=== PATIENT | male | born 1950 | race Caucasian/White ===

== ENCOUNTER → 2016-11-17 | Outpatient (CLI) | payer OTHER ==
[~2016-11-17] MED LIST: ATEN25TA; BABY81CH; LEVA500T; LISIPOW; MELOPOW
--- NOTE | 2016-11-17 08:51 | REP ---
Chest x-ray: Two views. History: Asthma. Comparison chest x-ray is from May 08, 2012. Findings: The lungs are well inflated and clear on today's radiographs. Pleural angles are sharp. Heart size is normal. There are minimal degenerative changes in the thoracic spine. Pulmonary vasculature is not increased. Impression: No active disease. Signed by Panfilo Rizvi MD 11/17/2016 03:36 P
== END ==
LOC: M LAB 08:09 → M RAD 08:09
PROVIDERS: ATTEND Orthopaedic Surgery
DX: Z01.818 Encounter for other preprocedural examination (principal); J45.909 Unspecified asthma, uncomplicated

== ENCOUNTER → 2016-11-20 | Outpatient (CLI) | payer OTHER ==
[2016-11-20 15:12] LABS: MEAN CORPUSCULAR HEMOGLOBIN 31.7 pg (27.0-33.0); MEAN CORPUSCULAR VOLUME 93.2 fl (80.0-96.0); WHITE BLOOD COUNT 8.2 K/mm3 (4.0-10.0)
[2016-11-20 15:44] LABS: ALBUMIN 4.2 GM/DL (3.2-5.2); ALBUMIN/GLOBULIN RATIO 1.24 (1.00-1.93); ALKALINE PHOSPHATASE 107 U/L (45-117); ALT/SGPT 36 U/L (12-78); ANION GAP 7 MEQ/L (8-16); AST/SGOT 22 U/L (15-37); BILIRUBIN,TOTAL 0.5 MG/DL (0.2-1.0); BLOOD UREA NITROGEN 13 MG/DL (7-18); CALCIUM LEVEL 8.8 MG/DL (8.8-10.2); CARBON DIOXIDE LEVEL 30 MEQ/L (21-32); CHLORIDE LEVEL 103 MEQ/L (98-107); GLOMERULAR FILTRATION RATE > 60.0 (>49); GLUCOSE, FASTING 101 MG/DL (80-110); SODIUM LEVEL 140 MEQ/L (136-145); TOTAL PROTEIN 7.6 GM/DL (6.4-8.2)
--- NOTE | 2016-11-20 17:20 | ECGEPIP ---
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
== END ==
LOC: M LAB 14:34
PROVIDERS: ATTEND Physician Assistant
DX: Z01.818 Encounter for other preprocedural examination (principal)

== ENCOUNTER → 2016-12-10 | Outpatient (REF) | payer OTHER ==
[2016-12-10 13:47] LABS: BASO # 0.1 K/mm3 (0.0-0.2); BASO % 0.9 % (0.0-1.0); EOS # 0.2 K/mm3 (0.0-0.50); EOS % 2.8 % (0.0-3.0); LARGE UNSTAINED CELL # 0.2 K/mm3 (0.0-0.4); LARGE UNSTAINED CELL % 2.5 % (0.0-4.0); LYMPH # 2.2 K/mm3 (1.5-4.5); LYMPH % 27.4 % (24.0-44.0); MEAN CORPUSCULAR HEMOGLOBIN 32.8 pg (27.0-33.0); MEAN CORPUSCULAR HGB CONC 34.2 g/dl (32.0-36.5); MEAN CORPUSCULAR VOLUME 96.1 fl (80.0-96.0); MONO # 0.4 K/mm3 (0.0-0.8); MONO % 4.9 % (0.0-5.0); NEUTROPHILS % 61.4 % (36.0-66.0); PLATELET COUNT, AUTOMATED 250 k/mm3 (150-450); RED CELL DISTRIBUTION WIDTH 12.2 % (11.5-14.5); WHITE BLOOD COUNT 8.2 K/mm3 (4.0-10.0)
[2016-12-10 14:36] LABS: ERYTHROCYTE SEDIMENTATION RATE 14 mm/hr (0-20)
== END ==
LOC: M LABDRAW1 11:27
PROVIDERS: ATTEND Orthopaedic Surgery
DX: Z47.89 Encounter for other orthopedic aftercare (principal)

== ENCOUNTER → 2017-01-23 | Outpatient (CLI) | payer OTHER ==
[2017-01-23 11:56] LABS: BASO % 0.5 % (0.0-1.0); EOS # 0.2 K/mm3 (0.0-0.50); EOS % 2.5 % (0.0-3.0); LARGE UNSTAINED CELL # 0.1 K/mm3 (0.0-0.4); LARGE UNSTAINED CELL % 1.6 % (0.0-4.0); LYMPH # 2.1 K/mm3 (1.5-4.5); LYMPH % 29.8 % (24.0-44.0); MEAN CORPUSCULAR HEMOGLOBIN 33.4 pg (27.0-33.0); MEAN CORPUSCULAR HGB CONC 35.1 g/dl (32.0-36.5); MEAN CORPUSCULAR VOLUME 95.2 fl (80.0-96.0); MONO # 0.4 K/mm3 (0.0-0.8); MONO % 6.4 % (0.0-5.0); NEUTROPHILS # 3.9 K/mm3 (1.8-7.7); NEUTROPHILS % 59.2 % (36.0-66.0); PLATELET COUNT, AUTOMATED 218 k/mm3 (150-450); RED CELL DISTRIBUTION WIDTH 12.9 % (11.5-14.5); WHITE BLOOD COUNT 6.6 K/mm3 (4.0-10.0)
[2017-01-23 12:13] LABS: ALBUMIN 4.1 GM/DL (3.2-5.2); ALBUMIN/GLOBULIN RATIO 1.28 (1.00-1.93); ALKALINE PHOSPHATASE 103 U/L (45-117); ALT/SGPT 28 U/L (12-78); ANION GAP 8 MEQ/L (8-16); AST/SGOT 16 U/L (15-37); BILIRUBIN,TOTAL 0.9 MG/DL (0.2-1.0); BLOOD UREA NITROGEN 18 MG/DL (7-18); CARBON DIOXIDE LEVEL 26 MEQ/L (21-32); CHLORIDE LEVEL 108 MEQ/L (98-107); CREATININE FOR GFR 0.91 MG/DL (0.70-1.30); FERRITIN 391 NG/ML (26-388); FREE T4 0.82 NG/DL (0.76-1.46); GLOMERULAR FILTRATION RATE > 60.0 (>49); GLUCOSE, FASTING 135 MG/DL (80-110); PERCENT SATURATION 40.4 % (19.7-37.4); POTASSIUM SERUM 4.2 MEQ/L (3.5-5.1); SODIUM LEVEL 142 MEQ/L (136-145); TOTAL IRON BINDING CAPACITY 354 UG/DL (250-450); TOTAL PROTEIN 7.3 GM/DL (6.4-8.2)
== END ==
LOC: M WUC 09:57
PROVIDERS: ATTEND Family Medicine
DX: E03.9 Hypothyroidism, unspecified (principal); E55.9 Vitamin D deficiency, unspecified; E83.110 Hereditary hemochromatosis; Z12.5 Encounter for screening for malignant neoplasm of prostate
CPT/HCPCS: 36415; 80053; 82306; 82728; 83550; 83970; 84439; 84443; 85025; G0103

== ENCOUNTER → 2018-04-22 | Outpatient (REF) | payer OTHER ==
[2018-04-22 12:42] LABS: RETIC HEMOGLOBIN EQUIVALENT 36.6 pg (24-36); RETICULOCYTE # 49.7 10^9/L (17-77); RETICULOCYTE % 1.1 % (0.5-1.5)
[2018-04-22 12:49] LABS: INR 0.96; PROTHROMBIN TIME 12.9 SECONDS (12.1-14.4)
[2018-04-22 12:50] LABS: PARTIAL THROMBOPLASTIN TIME 33.1 SECONDS (25.4-37.6)
[2018-04-22 13:01] LABS: HEMATOCRIT 43.1 % (42.0-52.0)
[2018-04-22 13:43] LABS: ALBUMIN 3.9 GM/DL (3.2-5.2); ALBUMIN/GLOBULIN RATIO 1.22 (1.00-1.93); ALKALINE PHOSPHATASE 98 U/L (45-117); ALT/SGPT 21 U/L (12-78); ANION GAP 9 MEQ/L (8-16); AST/SGOT 10 U/L (7-37); BILIRUBIN,TOTAL 0.5 MG/DL (0.2-1.0); BLOOD UREA NITROGEN 13 MG/DL (7-18); C REACTIVE PROTEIN QUANTITATIV < 0.30 MG/DL (0.00-0.30); CALCIUM LEVEL 8.9 MG/DL (8.8-10.2); CARBON DIOXIDE LEVEL 27 MEQ/L (21-32); CHLORIDE LEVEL 106 MEQ/L (98-107); CREATININE FOR GFR 0.74 MG/DL (0.70-1.30); FREE T4 0.87 NG/DL (0.76-1.46); GLOMERULAR FILTRATION RATE > 60.0 (>42); GLUCOSE, FASTING 75 MG/DL (70-100); MAGNESIUM LEVEL 2.2 MG/DL (1.8-2.4); POTASSIUM SERUM 4.5 MEQ/L (3.5-5.1); PSA SCREENING 2.64 NG/ML (< 4.0); SODIUM LEVEL 142 MEQ/L (136-145); TOTAL PROTEIN 7.1 GM/DL (6.4-8.2)
[2018-04-22 15:23] LABS: PRETREATED FOLATE FOR RBCFOL 17.6 NG/ML; RBC FOLATE 857.5 NG/ML (280-791)
== END ==
LOC: M SFHCPLAZ 09:28
DX: Z12.5 Encounter for screening for malignant neoplasm of prostate (principal); E53.8 Deficiency of other specified B group vitamins; E83.110 Hereditary hemochromatosis; E03.9 Hypothyroidism, unspecified; I10 Essential (primary) hypertension; R63.4 Abnormal weight loss

== ENCOUNTER → 2019-03-06 | Outpatient (CLI) | payer OTHER ==
[~2019-03-06] MED LIST changes: +ATEN25TA PO; +D 50CAP2 PO; +DICL1GEL3 TOP; +FLON1SPR NARES; +LEVO50TA5 PO; +LIPI20TA PO; +LISI-538 PO; +MOBI15TA PO; +VITA500T41 PO
[2019-03-06 08:41] LABS: HEMATOCRIT 41.9 % (42.0-52.0); HEMOGLOBIN 13.9 g/dl (13.5-17.5); MEAN CORPUSCULAR HEMOGLOBIN 31.5 pg (27.0-33.0); MEAN CORPUSCULAR HGB CONC 33.2 g/dl (32.0-36.5); PLATELET COUNT, AUTOMATED 222 10^3/uL (150-450); RED BLOOD COUNT 4.41 10^6/uL (4.30-6.10); WHITE BLOOD COUNT 7.2 10^3/uL (4.0-10.0)
[2019-03-06 08:58] LABS: INR 1.03; PROTHROMBIN TIME 13.2 SECONDS (11.8-14.0)
[2019-03-06 09:06] LABS: ALBUMIN 3.8 GM/DL (3.2-5.2); ALT/SGPT 20 U/L (12-78); BILIRUBIN,TOTAL 0.7 MG/DL (0.2-1.0); BLOOD UREA NITROGEN 17 MG/DL (7-18); CALCIUM LEVEL 8.7 MG/DL (8.8-10.2); CARBON DIOXIDE LEVEL 26 MEQ/L (21-32); CHLORIDE LEVEL 109 MEQ/L (98-107); CREATININE FOR GFR 0.97 MG/DL (0.70-1.30); GLOMERULAR FILTRATION RATE > 60.0 (>42); GLUCOSE, FASTING 131 MG/DL (70-100); POTASSIUM SERUM 4.2 MEQ/L (3.5-5.1); SODIUM LEVEL 142 MEQ/L (136-145); TOTAL PROTEIN 7.3 GM/DL (6.4-8.2)
[2019-03-06 09:13] LABS: ERYTHROCYTE SEDIMENTATION RATE 10 mm/hr (0-20)
--- NOTE | 2019-03-06 21:03 | ECGEPIP ---
[facility] Test Date: 2019-03-06 Pat Name: RACHAEL VILLA Department: Room: - Gender: Male Recruiter: Jenny : 1950 Requested By: Leonel Henry Order Number: [id number] Reading MD: Dl Contreras Measurements Intervals [place] Rate: 64 P: 57 FL: 170 QRS: 10 QRSD: 91 T: 44 QT: 377 QTc: 391 Interpretive Statements Normal sinus rhythm Minor repolarization abnormalities No significant change when compared to prior tracing of 11/20/2016 Electronically Signed on 03-06-2019 21:02:46 EDT by Dl Contreras
--- NOTE | 2019-03-07 05:41 | REP ---
Clinical: Preoperative assessment . Comparison: 11/17/2016 . Technique: PA and lateral. Findings: The mediastinum and cardiac silhouette are normal. The lung moralez are clear and without acute consolidation, effusion, or pneumothorax. The skeletal structures are intact and normal. Impression: 1. No acute cardiopulmonary process. Electronically Signed by Pratik Dejesus MD 03/07/2019 05:32 A
== END ==
LOC: M RAD 08:12
PROVIDERS: ATTEND Orthopaedic Surgery
DX: M17.12 Unilateral primary osteoarthritis, left knee (principal)

== ENCOUNTER 2019-03-27 09:25 | Inpatient (IN) | payer OTHER ==
--- NOTE | 2019-03-15 09:20 | HPE ---
DATE OF ADMISSION: 03/27/2019 HISTORY OF PRESENT ILLNESS: This is a pleasant 69-year-old male with continuing symptomatic left knee osteoarthritis related to a work injury sustained on 06/22/2016. Mr. Quinones has consented for a left total knee arthroplasty per Dr. Leonel Malone. X-rays are consistent with advanced osteoarthritis. Medical optimization performed by [place] on 03/13/2019, which I am awaiting her documentation. ALLERGIES: None known to drugs. MEDICATIONS: List includes atenolol, Lipitor, lisinopril, levothyroxine sodium, Mobic, Tylenol 325 mg, Diclofenac 1%. MEDICAL PROBLEM LIST: Bilateral knee osteoarthritis. Hypercholesteremia. Hypertension. Hypothyroidism. PAST SURGICAL HISTORY: Tooth extraction. SOCIAL HISTORY: Never smoked. Denies ethanol intake. FAMILY HISTORY: Hypertension, hypercholesteremia, heart disease, diabetes, and cancer. REVIEW OF SYSTEMS: Denies chest pain, shortness of breath, dyspnea on exertion, fever, chills, malaise, upper respiratory or urinary tract symptoms. EKG: Normal sinus rhythm, minor repolarization abnormalities as reviewed through [facility]. CHEST X-RAY: Service date 03/06/2019, no acute cardiopulmonary process. LABORATORY FINDINGS: Glucose (fasting) 131, chloride level 109, anion gap 7, calcium level 8.7, hematocrit 41.9. PHYSICAL EXAMINATION: Vitals: Height 68.25, weight 184.6, temperature 97.1, blood pressure (BP) 130/66, pulse 67, respirations 12. This a pleasant, well-developed, well-nourished male in no acute distress. He is alert and oriented times three. Mood and affect are appropriate. Normocephalic. Neck: Supple. Negative jugular venous distention (JVD) or bruits. Chest rises symmetrically. Lungs clear. Heart: Regular rate and rhythm. Abdomen soft, nontender times four. Bilateral Lower Extremities: Benign, noninfectious looking, skin is intact. Left knee varus osteoarthritic alignment, positive tenderness to medial joint line palpation, range of motion is 0 past 90. IMPRESSION: 1. Left knee symptomatic severe osteoarthritis. 2. The patient consented for a left total knee arthroplasty per Dr. Leonel Malone. 3. Medical optimization per [place], which we are awaiting documentation. 4. 2 grams IV Kefzol bridge construction inspector to operating room (OR). 4. Sequential compression device (SCD) and thromboembolic deterrent stockings (TEDS) in OR. MTDD
[~2019-03-27] VITALS: Ht 177.8 cm; Wt 83.4 kg
[~2019-03-27 09:25] MED LIST changes: +CelecoXIB 400 MG CAP PO ONE; +LIDOCAINE 1% MDV 20ML VIAL SQ PRN; +LR 1,000 ML IV ONE; +PERCOCET 5MG/325MG TAB PO ONE; +PREGABALIN 75 MG CAP(LYRICA) PO ONE
[2019-03-27] MEDS ORDERED: PROPOFOL 200 MG/20 ML VIAL As Ordered ONE (11:36)
[2019-03-27] MEDS ORDERED: LIDOCAINE 2% INJ 100 MG/5 ML SDV (FOR ANES.) As Ordered ONE (11:36)
[2019-03-27] MEDS ORDERED: ONDANSETRON 4MG/2ML VIAL (J2405) As Ordered ONE (11:36)
[2019-03-27] MEDS ORDERED: fentaNYL 100 MCG/2 ML INJECTION (J3010) As Ordered ONE (11:39)
[2019-03-27] MEDS ORDERED: MIDAZOLAM INJ 2 MG/2 ML VIAL (J2250) As Ordered ONE (11:39)
[2019-03-27] MEDS ORDERED: ceFAZolin 1GM INJ (J0690 PER 500MG) As Ordered ONE (12:09)
[2019-03-27] MEDS ORDERED: BUPIVACAINE/EPIN 0.25% 30 ML VIAL As Ordered ONE (12:09)
[2019-03-27] MEDS ORDERED: TRANEXAMIC ACID 100 MG/ML 10ML VIAL As Ordered ONE (12:09)
[2019-03-27] MEDS ORDERED: EPINEPHrine INJ 1 MG/ML 1ML AMP As Ordered ONE (12:10)
[2019-03-27] MEDS ORDERED: BUPIVACAINE LIPOSOME/PF 1.3% 20ML VIAL (13.3MG/ML)(EXPAREL)(C9290 PER1MG) As Ordered ONE (12:10)
[2019-03-27] MEDS ORDERED: BUPIVACAINE HCL 0.5% 30 ML VIAL As Ordered ONE (13:44)
[2019-03-27] MEDS ORDERED: ePHEDrine SULFATE 25 MG/5 ML(5MG/ML) SYRINGE As Ordered ONE (15:11)
[2019-03-27] MEDS ORDERED: PHENYLephrine HCL 500 MCG/5 ML (100MCG/ML) SYRINGE (J2370) As Ordered ONE (15:11)
[2019-03-27] MEDS ORDERED: HYDROMORPHONE HCL 0.5 MG/ 0.5 ML SYRINGE (J1170 PER 1) IV PRN (16:00)
[2019-03-27] MEDS: LR 1,000 ML IV SCH (16:00)
[2019-03-27] MEDS ORDERED: ONDANSETRON 4MG/2ML VIAL (J2405) IV PRN (16:00)
[2019-03-27] MEDS ORDERED: MORPHINE 4 MG/ML 1ML VIAL/SYRINGE (J2270) IV PRN ×2 (16:00)
[2019-03-27] MEDS ORDERED: ACETAMINOPHEN TAB 650MG DOSE (2X325MG) PO PRN (16:15)
[2019-03-27] MEDS ORDERED: FLEET ENEMA PR PRN (16:15)
[2019-03-27 16:39] VITALS: BP 127/76
[2019-03-27 17:12] VITALS: BP 127/80
--- NOTE | 2019-03-27 17:17 | REP ---
LEFT KNEE, TWO VIEWS: AP and lateral views of the left knee are performed. There is placement of a total knee prosthesis. Osseous structures are intact and well aligned. Electronically Signed by Lenin Bales MD 03/28/2019 11:36 P
[2019-03-27 17:58] VITALS: BP 124/71
--- NOTE | 2019-03-27 18:53 | CR.PDOC ---
General Date of Consultation: Mar 27, 2019 Consultation REASON FOR CONSULTATION/CHIEF COMPLAINT: . Management of medical comorbidities HISTORY OF PRESENT ILLNESS: . 69-year-old male with past medication for hypertension, dyslipidemia, hypothyroidism, and osteoporosis was admitted under the orthopedic surgery service for elective left knee arthroplasty. At this time, the patient denies any acute complaints of fevers, chills, chest pain, palpitations, abdominal pain, or any nausea/vomiting/diarrhea. ALLERGIES: Please see below. HOME MEDICATIONS: Please see below. PAST MEDICAL HISTORY: As noted above PAST SURGICAL HISTORY: To the extraction SOCIAL HISTORY: Denies tobacco, alcohol, or illicit drug use REVIEW OF SYSTEMS: 10 point review of systems negative unless otherwise specified in HPI. PHYSICAL EXAMINATION: VITAL SIGNS: Please see below. GENERAL APPEARANCE: . Awake, alert, in no acute distress HEENT: . Normocephalic, atraumatic RESPIRATORY: . Clear to auscultation bilaterally CARDIOVASCULAR: . Normal rate, normal S1, S2 ABDOMEN: . Soft, nontender, nondistended EXTREMITIES: . Left knee noted to be wrapped in surgical dressing. Range of motion limited secondary to recent surgical intervention LABORATORY DATA: Please see below. ASSESSMENT/PLAN: Status post left total knee arthroplasty Pain, DVT prophylaxis, and postoperative management as per orthopedic surgery, PT for functional optimization Hypothyroidism Continue levothyroxine Dyslipidemia Continue statin Hypertension Will hold antihypertensives until the a.m. when blood work is reviewed, and after blood pressure readings have been observed DVT prophylaxis Xarelto as per Ortho Vital Signs/I&O Vital Signs Date Time Temp Pulse Resp B/P (MAP) Pulse Ox O2 Delivery O2 Flow Rate FiO2 03/27/19 16:15 97.3 73 18 129/81 (97) 97 03/27/19 13:15 2 Allergies Coded Allergies: No Known Allergies (Unverified , 03/27/19) Home Medications Scheduled Atenolol (Atenolol) 25 Mg Tablet, 25 MG PO DAILY, (Reported) Atorvastatin Calcium (Lipitor) 20 Mg Tablet, 20 MG PO 2XWK for 30 Days, #30 (Reported) Cholecalciferol (Vitamin D3) (Vitamin D3) 5,000 Unit Capsule, 1 CAP PO DAILY for 30 Days, #30 (Reported) Cyanocobalamin (Vitamin B-12) (Vitamin B-12) 500 Mcg Tablet, 500 MCG PO DAILY for 30 Days, #30 (Reported) Diclofenac Sodium (Diclofenac Sodium) 1% 100GM Gel..gram., 1 APLCT TOP TID for 21 Days, #100 (Reported) APPLY TO LEFT KNEE Levothyroxine Sodium (Levothyroxine Sodium) 50 Mcg Tablet, 50 MCG PO DAILY for 30 Days, #30 (Reported) Lisinopril (Lisinopril) 20 Mg Tablet, 20 MG PO DAILY for 30 Days, #30 (Reported) Scheduled PRN Fluticasone Propionate (Flonase Allergy Relief) 9.9 Ml Stewart.susp, 2 SPRAY NARES DAILY PRN for NASAL CONGESTION for 30 Days, #9.9 (Reported) Meloxicam (Mobic) 15 Mg Tablet, 15 MG PO DAILY PRN for pain for 30 Days, #30 (Reported) ASHKAN MALAGON MD Mar 27, 2019 18:53
[2019-03-27] MEDS ORDERED: FLUTICASONE PROP 0.05% NASAL SPRAY 16 GM (FLONASE) NARES PRN (19:00)
[2019-03-27 19:03] VITALS: BP 122/70
[2019-03-27 21:05] VITALS: BP 122/71
[2019-03-27] MEDS: PERCOCET 5MG/325MG TAB PO PRN (21:19)
[2019-03-28 01:55] VITALS: BP 112/68
[2019-03-28] MEDS: LR 1,000 ML IV SCH (05:20)
[2019-03-28] MEDS: PERCOCET 5MG/325MG TAB PO PRN (05:23)
[2019-03-28 05:25] VITALS: BP 117/60
[2019-03-28] MEDS ORDERED: LEVOTHYROXINE 50MCG TABLET (0.05MG) PO SCH (06:00)
[2019-03-28 06:16] LABS: HEMATOCRIT 37.3 % (42.0-52.0); HEMOGLOBIN 12.7 g/dl (13.5-17.5); MEAN CORPUSCULAR HEMOGLOBIN 32.4 pg (27.0-33.0); MEAN CORPUSCULAR VOLUME 95.2 fl (80.0-96.0); PLATELET COUNT, AUTOMATED 196 10^3/uL (150-450); RED BLOOD COUNT 3.92 10^6/uL (4.30-6.10)
[2019-03-28 06:34] LABS: BLOOD UREA NITROGEN 13 MG/DL (7-18); CALCIUM LEVEL 8.5 MG/DL (8.8-10.2); CARBON DIOXIDE LEVEL 24 MEQ/L (21-32); CHLORIDE LEVEL 105 MEQ/L (98-107); CREATININE FOR GFR 0.91 MG/DL (0.70-1.30); GLOMERULAR FILTRATION RATE > 60.0 (>42); GLUCOSE, FASTING 166 MG/DL (70-100); SODIUM LEVEL 139 MEQ/L (136-145)
[2019-03-28] MEDS ORDERED: PERC5TAB12 PO (06:40)
[2019-03-28] MEDS ORDERED: XARE10TA PO (06:40)
[2019-03-28] MEDS ORDERED: PERCOCET 5MG/325MG TAB PO PRN (07:45)
[2019-03-28] MEDS ORDERED: RIVAROXABAN 10 MG TAB (XARELTO) PO SCH ×2 (08:00→18:00)
--- NOTE | 2019-03-28 08:03 | IPNPDOC ---
Subjective Date Seen The patient was seen on 03/28/19. Subjective Chief Complaint/HPI Patient sitting in chair eating breakfast as I entered the room. He reports to be feeling well. No complaints Constitutional: Denies: Chills, Fever Pulmonary: Denies: Dyspnea, Cough Cardiovascular: Denies: Chest Pain, Palpitations, Orthopnea, Edema Gastrointestinal: Denies: Nausea, Vomiting, Abdominal Pain Psych: Reports: Mood Normal Objective Physical Examination General Exam: Positive: Alert, Cooperative, No Acute Distress Neck Exam: Positive: Supple Chest Exam: Positive: Clear to auscultation, Normal air movement; Negative: Rales, Rhonchi, Wheezing Heart Exam: Positive: Rate Normal Abdomen Exam: Positive: Normal bowel sounds, Soft; Negative: Tenderness Extremity Exam: Positive: Other (Left knee with DIANA bandage, no drainage noted); Negative: Edema Psych Exam: Positive: Mental status NL, Mood NL Assessment /Plan Problems (1) Hypertension Status: Chronic Response to Treatment: Stable Problem Text: 03/28/19: Antihypertensives have been on hold. Pressures have remained stable. We will resume beta-ena today. We will continue to hold ACEI for now. We will continue to monitor B/P (2) Hypothyroidism Status: Chronic Response to Treatment: Stable Problem Text: 03/28/19: Continue with current levothyroxine dose (3) Hyperlipemia Status: Chronic Response to Treatment: Stable Problem Text: 03/28/19: Remains on statin (4) DVT prophylaxis Problem Text: 03/28/19: On Xarelto. Managed by Ortho team Plan/VTE VTE Prophylaxis Ordered?: Yes VS, I&O, 24H, Fishbone Vital Signs/I&O Vital Signs Date Time Temp Pulse Resp B/P (MAP) Pulse Ox O2 Delivery O2 Flow Rate FiO2 03/28/19 05:53 15 03/28/19 05:25 97.4 71 117/60 (79) 97 03/27/19 13:15 2 I&O- Last 24 Hours up to 6 AM 03/28/19 06:00 Intake Total 3740 ml Output Total 1375 ml Balance 2365 ml Laboratory Data 24H LABS Laboratory Tests 2 03/28/19 05:56: Nucleated Red Blood Cells % (auto) 0.0, Anion Gap 10, Glomerular Filtration Rate > 60.0, Blood Urea Nitrogen 13, Creatinine 0.91, Sodium Level 139, Potassium Level 4.0, Chloride Level 105, Carbon Dioxide Level 24, Calcium Level 8.5L CBC/BMP Laboratory Tests 03/28/19 05:56 Red Blood Count 3.92 L, Mean Corpuscular Volume 95.2, Mean Corpuscular Hemoglobin 32.4, Mean Corpuscular Hemoglobin Concent 34.0, Red Cell Distribution Width 11.9, Calcium Level 8.5 L NED [facility] PATHOLOGY LABORATORY TECHNOLOGIST Mar 28, 2019 08:01
[2019-03-28] MEDS: ATORVASTATIN 20 MG TAB PO SCH ×2 (09:00→09:46)
[2019-03-28] MEDS ORDERED: MOM 30ML SUSPENSION UDC PO SCH (09:00)
[2019-03-28] MEDS ORDERED: SENOKOT S TAB PO SCH (09:00)
[2019-03-28] MEDS ORDERED: MIRALAX *UNIT DOSE* 17GM PACKET PO SCH (09:00)
[2019-03-28] MEDS ORDERED: ATENOLOL 25 MG TAB PO SCH (09:00)
[2019-03-28 09:46] VITALS: BP 117/60
--- NOTE | 2019-03-28 23:46 | RO ---
DATE OF PROCEDURE: 03/27/2019 PREOPERATIVE DIAGNOSIS: Left knee osteoarthritis with varus deformity. POSTOPERATIVE DIAGNOSIS: Left knee osteoarthritis with varus deformity. PROCEDURE PERFORMED: Left total knee replacement. SURGEON: Dr. Leonel Malone. THEATER EDUCATION TEACHER: SANTOSH Juares. ANESTHESIA: Block with spinal. ESTIMATED BLOOD LOSS: Less than 100 mL. TOURNIQUET: Tourniquet was utilized. Total tourniquet time was 74 minutes. No complications. COMPONENTS USED: Include DePuy Attune system size 6 femoral component size 7 tibial component cemented, size 6 mm Polyethylene size 30 mm patellar component rotating platform posterior stabilized. INDICATIONS: Progressive discomfort in the left knee. He has elected for operative intervention knee replacement. Consent reviewed in detail including a deepa discussion of the pathology involved, the procedure proposed, alternatives including doing nothing and risks including not limited to pain, failure, infection, bleeding blood loss, incomplete relief of symptoms need for additional surgery and other issues. He agrees to proceed. OPERATIVE COURSE: Identified in the holding area. Site and side verified and brought to the operating room after the block was accomplished. Spinal was accomplished in the operating room and then he was sterilely prepped and draped in usual fashion for exposure of the left knee for replacement. Once I and the mines inspector were comfortable with the patient's positioning he was then sterilely prepped, draped usual fashion. Next the incision was outlined with a marking pen infiltrated with quarter percent Marcaine with epinephrine. The leg elevated and tourniquet was inflated to 275 mmHg. I then made the incision with a 10 blade knife down through skin subcuticular tissues to the extensor mechanism. Patriciarobert utilized retractors to help with exposure. Next fresh knife was utilized to implement a medial parapatellar arthrotomy. Infrapatellar fat pad was removed by myself. Supracondylar soft tissue was cleared from the anterior femur to allow sizing. Medial release was accomplished at the medial aspect of tibia using sharp knife as well as a monterroso elevator. Next, once this was accomplished the patella was everted. The knee was flexed. The lateral patellar plica was released. The canal opening reamer was utilized on the femur. The distal femoral guide was installed 3 degrees valgus, pinned into place. Intramedullary guide removed. I placed retractors. Mr. Bailey then made the distal femoral cut 9 mm. Next, once this was accomplished in the flexed AP sizing guide applied predicting a size 6 femoral component. Pins were placed 3 degrees left. Next, this was removed 4-in-1 guide installed pinned into place. I made the appropriate anterior posterior followed by chamfer cuts while Mr. Bailey positioned retractors to protect the soft tissue. Next, once this guide was removed we inspected the cuts which are appropriate. We removed some osteophyte using Evans-Loving. Next, once this was accomplished tibial alignment guide was installed and based on this was based on the second ray with the appropriate slope 4 mm off the bad side which is the medial side. It was pinned into place. Drop conchis was utilized to verify and I was satisfied with alignment and extension. This was then removed. I then again placed the soft tissue protector retractors/Homans and then I made the tibial cut. Once the tibial cut was made we utilized lamina spreaders and removed the meniscus on both sides. In addition, several 1 cm ossified chondral fragments were obtained from the posterior fossa. Next the cruciate ligaments also had been removed. The corrugated box machine operator was utilized to cut the femoral notch/box cut. It was pinned into place and the box cut was made with an oscillating saw. Box cut was further contoured with the rasp. Next the sizing guide was utilized predicting size 6 mm to 7 mm polyethylene spacer both seemed to be stable in extension and flexion. Next the trial tibial tray was installed 7 mm fit appropriately. It was pinned into place with a rotating platform posterior stabilized. The broach guide was installed. Large tibial drill was utilized followed by the broach. The broach was left in place. Trial femur installed and we trialed the +6 mm while the 7 mm, 6 mm actually was stable and I was able to get good extension. It was stable in flexion. The leg was extended. Posterior patellar cut was made with an oscillating saw drills were made with the step drill and the guide for 38 mm 38 mm patella was trialed and found be stable. Next, once this was accomplished all trial components were removed the wound was inspected. I irrigated with TXA. I also instilled Exparel local anesthetic solution in the posterior capsule and around the wound. Mr. Bailey stepped to the back table to prepare the bone cement while I further prepared the exposed bone and dried it. Once the bone cement was the appropriate consistency was cemented in the components in place removed excess cement using curettes, installed the non trial rotating platform liner, placed the leg in extension and inspected for excess cement which was removed using curettes. With the leg in extension we then inspected the posterior patella and cemented the patella button 38 [address] non trial into place. It was held with the clamp. Excess cement cleared using curettes. The TXA was again placed within the wound and the cement was allowed to harden. Once this was accomplished, irrigation with pulse lavage was accomplished the remaining Exparel was instilled around the soft tissues subcuticular areas, the extensor mechanism was then reapproximated using interrupted and Stratafix stitch, deep dermis with 3-0 Vicryl. Pernio dressing applied. Tourniquet was deflated at 74 minutes. Both myself and Mr. Bailey were present throughout the case. At the conclusion of the procedure, the patient was able to be moved to the recovery room in good condition. For further details please refer to medical record.
--- NOTE | 2019-03-31 04:37 | DSES ---
DATE OF ADMISSION: 03/27/2019 DATE OF DISCHARGE: 03/28/2019 DISCHARGE DIAGNOSIS: 1. Left knee arthritis status post left total knee arthroplasty. HISTORY: This is a 69-year-old male with progressively worsening left knee pain and stiffness. He has failed to improve with conservative treatment. He has elected for surgery for his continued symptoms. PROCEDURE PERFORMED: Left total knee arthroplasty. HOSPITAL COURSE: The patient was admitted on the day of surgery and underwent left total knee arthroplasty that was without complications. During his stay, he was up with physical therapy per the protocol and his pain was controlled. On the day of dischargem, the patient was doing well. He was weightbearing as tolerated to his left lower extremity using a walker. He is going to resume preoperative medications and diet. He is going to use oral medications for pain control. He is going to use MAYTE stockings and Xarelto for 30 days postoperatively for DVT prophylaxis. Additionally, he will followup in the office in 2 weeks for wound check and staple removal. For further details, please see the medical record and please CC copies to Dr. Leonel Malone and the patient's PCM for their review.
== END 2019-03-28 10:45 | disposition home or self-care (01) | DRG 302 ==
LOC: M OR 09:25 → M MS5PR 16:30
PROVIDERS: ADMIT Orthopaedic Surgery; ATTEND Family Medicine
PROC: 0SRD0J9 Replacement of Left Knee Joint with Synthetic Substitute, Cemented, Open Approach (ICD-10-PCS; principal; 2019-03-27 12:45)
DX: M17.12 Unilateral primary osteoarthritis, left knee (principal); I10 Essential (primary) hypertension; Z79.899 Other long term (current) drug therapy; E78.00 Pure hypercholesterolemia, unspecified; E03.9 Hypothyroidism, unspecified; M81.0 Age-related osteoporosis without current pathological fracture

== ENCOUNTER → 2019-08-23 | Outpatient (CLI) | payer OTHER ==
[~2019-08-23] MED LIST changes: -CelecoXIB 400 MG CAP PO ONE; -LIDOCAINE 1% MDV 20ML VIAL SQ PRN; -LR 1,000 ML IV ONE; +PERC5TAB12 PO; -PERCOCET 5MG/325MG TAB PO ONE; -PREGABALIN 75 MG CAP(LYRICA) PO ONE; +XARE10TA PO
[2019-08-23 14:15] LABS: ALBUMIN 3.8 GM/DL (3.2-5.2); ALT/SGPT 21 U/L (12-78); BILIRUBIN,TOTAL 0.6 MG/DL (0.2-1.0); BLOOD UREA NITROGEN 12 MG/DL (7-18); CALCIUM LEVEL 8.9 MG/DL (8.8-10.2); CARBON DIOXIDE LEVEL 25 MEQ/L (21-32); CHLORIDE LEVEL 107 MEQ/L (98-107); CREATININE FOR GFR 0.79 MG/DL (0.70-1.30); FERRITIN 305 NG/ML (26-388); FREE T4 0.99 NG/DL (0.76-1.46); GLOMERULAR FILTRATION RATE > 60.0 (>42); GLUCOSE, FASTING 79 MG/DL (70-100); IRON (FE) 88 UG/DL (65-175); PERCENT SATURATION 27.1 % (19.7-50.0); POTASSIUM SERUM 4.2 MEQ/L (3.5-5.1); PTH INTACT 48.1 PG/ML (18.5-88.0); SODIUM LEVEL 140 MEQ/L (136-145); TOTAL 25(OH) VITAMIN D 46.4 NG/ML (30.0-100.0); TOTAL IRON BINDING CAPACITY 325 UG/DL (250-450); TOTAL PROTEIN 7.2 GM/DL (6.4-8.2); VITAMIN B12 LEVEL 658 PG/ML (247-911)
[2019-08-23 15:16] LABS: HEMOGLOBIN A1c 5.5 %
== END ==
LOC: M PLALAB 11:41
PROVIDERS: ATTEND Family Medicine
DX: Z12.5 Encounter for screening for malignant neoplasm of prostate (principal); E55.9 Vitamin D deficiency, unspecified; R73.01 Impaired fasting glucose; E53.8 Deficiency of other specified B group vitamins; E03.9 Hypothyroidism, unspecified; E83.110 Hereditary hemochromatosis
CPT/HCPCS: 36415; 80053; 82306; 82607; 82728; 83036; 83525; 83550; 83970; 84439; 84443; 86335; G0103

== ENCOUNTER → 2020-01-23 | Outpatient (CLI) | payer OTHER ==
[~2020-01-23] MED LIST changes: +BACL10TA2 PO; +CHLOR25TA PO; +CHOL400T PO
[2020-01-23 13:04] LABS: HEMATOCRIT 43.7 % (42.0-52.0); HEMOGLOBIN 14.6 g/dl (13.5-17.5); MEAN CORPUSCULAR HEMOGLOBIN 31.3 pg (27.0-33.0); MEAN CORPUSCULAR HGB CONC 33.4 g/dl (32.0-36.5); MEAN CORPUSCULAR VOLUME 93.8 fl (80.0-96.0); PLATELET COUNT, AUTOMATED 224 10^3/uL (150-450); RED BLOOD COUNT 4.66 10^6/uL (4.30-6.10); WHITE BLOOD COUNT 7.8 10^3/uL (4.0-10.0)
[2020-01-23 13:15] LABS: INR 0.99; PROTHROMBIN TIME 12.8 SECONDS (11.8-14.0)
[2020-01-23 13:30] LABS: ALT/SGPT 22 U/L (12-78); BILIRUBIN,TOTAL 0.7 MG/DL (0.2-1.0); BLOOD UREA NITROGEN 16 MG/DL (7-18); CALCIUM LEVEL 9.2 MG/DL (8.8-10.2); CARBON DIOXIDE LEVEL 28 MEQ/L (21-32); CHLORIDE LEVEL 108 MEQ/L (98-107); CREATININE FOR GFR 0.89 MG/DL (0.70-1.30); GLOMERULAR FILTRATION RATE > 60.0 (>42); GLUCOSE, FASTING 97 MG/DL (70-100); SODIUM LEVEL 143 MEQ/L (136-145); TOTAL PROTEIN 7.3 GM/DL (6.4-8.2)
[2020-01-23 13:32] LABS: ERYTHROCYTE SEDIMENTATION RATE 5 mm/hr (0-20)
--- NOTE | 2020-01-23 15:25 | REP ---
REASON FOR EXAM: Preoperative evaluation. COMPARISON: 03/06/2019 FINDINGS: The superior mediastinal structures are midline. The cardiac silhouette is unremarkable in size, shape, and position. The diaphragmatic surfaces of the lungs are regular, and the costophrenic angles are clear. The pulmonary moralez are clear. The imaged osseous structures are intact. IMPRESSION: There is no acute cardiopulmonary disease. No significant change. Electronically Signed by Tio Mixon DO 01/23/2020 05:28 P
--- NOTE | 2020-01-25 18:29 | ECGEPIP ---
[facility] Test Date: 2020-01-23 Pat Name: RACHAEL VILLA Department: Room: - Gender: Male Mouse Breeder: WILBERT : 1950 Requested By: Leonel Henry Order Number: [id number] Reading MD: Reggie Kelely Measurements Intervals [place] Rate: 59 P: 46 RI: 191 QRS: -11 QRSD: 92 T: 16 QT: 394 QTc: 392 Interpretive Statements SINUS BRADYCARDIA REPOLARIZATION ABNORMALITY Compared to prior tracings in the system, heart rate is now slower Electronically Signed on 01-25-2020 18:29:23 EDT by Reggie Kelley
== END ==
LOC: M LAB 12:14
PROVIDERS: ATTEND Orthopaedic Surgery
DX: Z01.818 Encounter for other preprocedural examination (principal); I10 Essential (primary) hypertension; E03.9 Hypothyroidism, unspecified; M17.11 Unilateral primary osteoarthritis, right knee

== ENCOUNTER → 2020-01-25 | Outpatient (REF) | payer OTHER ==
[2020-01-25 18:13] LABS: FREE T4 0.89 NG/DL (0.76-1.46); THYROID STIMULATING HORMONE 4.1 uIU/ML (0.358-3.740)
== END ==
LOC: M SFHCPLAZ 14:21
PROVIDERS: ATTEND Family Medicine
DX: E03.9 Hypothyroidism, unspecified (principal)

== ENCOUNTER → 2020-01-26 | Outpatient (CLI) | payer OTHER | LOC: M LABSMTC 09:56 | PROVIDERS: ATTEND Anesthesiology | DX: Z11.59 Encounter for screening for other viral diseases (principal); Z03.89 Encounter for observation for other suspected diseases and conditions ruled out | CPT/HCPCS: C9803; U0003 ==

== ENCOUNTER 2020-01-29 09:11 | Inpatient (IN) | payer OTHER ==
--- NOTE | 2020-01-24 11:04 | HPE ---
DATE OF ANTICIPATED ADMISSION: 01/29/2020 ATTENDING PHYSICIAN: Dr. Leonel Malone CHIEF COMPLAINT: Right knee pain and stiffness. HISTORY: The patient is a 69-year-old male with progressively worsening right knee pain and stiffness. He failed to improve with conservative measures. He continued to have symptoms with weightbearing activities and activities of daily living. He has consented for an elective right total knee arthroplasty with Dr. Malone for his continued symptoms. Medical optimization completed with Dr. Rupesh Camacho. CURRENT MEDICATIONS: Include: - atenolol - Lipitor - lisinopril - Mobic - Tylenol - levothyroxine ALLERGIES: There are NO KNOWN DRUG ALLERGIES. CHRONIC MEDICAL CONDITIONS: Include hypertension, hypothyroidism, hyperlipidemia. PAST SURGICAL HISTORY: Tooth extraction and left total knee arthroplasty. SOCIAL HISTORY: The patient has never smoked and denies alcohol use. REVIEW OF SYSTEMS: The patient denies fevers, chills, nausea, vomiting, or diarrhea. Denies chest pain, shortness of breath, lightheadedness, dizziness, or headaches. He denies any abdominal pain. He denies any recent upper respiratory or urinary tract infection symptoms. He does continue to have right knee pain with weightbearing activities and activities of daily living. PHYSICAL EXAMINATION: GENERAL: Well-nourished, well-developed male, in no apparent distress. He is alert, oriented, and cooperative. Mood and affect are appropriate. VITAL SIGNS: Height 69.5 inches. Weight 187 pounds. Temperature 98 degrees. Blood pressure 122/78. Heart rate 66. Respirations 19. NECK: Supple without lymphadenopathy. HEART: Regular rate and rhythm. LUNGS: Clear to auscultation bilaterally. ABDOMEN: Is soft and nontender to palpation. Bowel sounds are present. MUSCULOSKELETAL: Right knee exhibits no gross abnormalities. There is no real tenderness to palpation. The patient can extend knee to approximately 5 degrees and flex to 90 degrees. Right lower extremity strength is 5/5. Calf is soft and nontender to palpation with no palpable cords noted. He is neurovascularly intact distally. No hip irritability was elicited with range of motion testing. LABORATORY DATA: Chest x-ray: No acute cardiopulmonary disease. Right knee x-rays notable for end-stage degenerative changes. Prothrombin time 12.8, INR 0.99. Comprehensive metabolic profile: Fasting glucose 97, BUN 16, creatinine for GFR 0.89, GFR greater than 60. Sodium 143, potassium 4.0, chloride elevated at 108. Carbon dioxide 28. Anion gap decreased at 7. Calcium 9.2. AST 13, ALT 22. Alkaline phosphatase elevated at 118. Total bilirubin 0.7. Total protein 7.3. Albumin 4.0. Albumin-globulin ratio 1.2. Complete blood count: ESR 5, WBCs 7.8, RBCs 4.66, hemoglobin 14.6, hematocrit 43.7, platelets 224. IMPRESSION: Right knee osteoarthritis with x-rays notable for end-stage degenerative changes. PLAN: The patient has consented for an elective right total knee arthroplasty with Dr. Malone for his continued symptoms. Medical optimization pending with Dr. Camacho. The patient understands that he will be nothing by mouth after midnight the night before surgery. He understands that he will follow his primary home health care social worker's recommendations for how to take their daily medications and when to stop anticoagulants if any. The patient will use his Bactroban and Hibiclens as directed. He will call [facility] same day surgery this Wednesday to get a report time for Wednesday.
[~2020-01-29] VITALS: Ht 175.3 cm; Wt 84.3 kg
[~2020-01-29 09:11] MED LIST changes: -BACL10TA2 PO; -CHLOR25TA PO; +LIDOCAINE 1% MDV 20ML VIAL SQ PRN
[2020-01-29] MEDS ORDERED: ceFAZolin SOD 2 GM in IV 1 EA IV ONE (09:30)
[2020-01-29] MEDS ORDERED: CelecoXIB 400 MG CAP PO ONE (09:30)
[2020-01-29] MEDS ORDERED: PERCOCET 5MG/325MG TAB PO ONE (09:30)
[2020-01-29] MEDS ORDERED: LR 1,000 ML IV ONE (09:30)
[2020-01-29] MEDS ORDERED: PREGABALIN 75 MG CAP(LYRICA) PO ONE (09:30)
[2020-01-29] MEDS ORDERED: propofoL 500 MG/50 ML VIAL As Ordered ONE (11:36)
[2020-01-29] MEDS ORDERED: MIDAZOLAM INJ 2MG/2ML VIAL (J2250 PER 1MG) As Ordered ONE ×2 (11:36→12:11)
[2020-01-29] MEDS ORDERED: ONDANSETRON 4MG/2ML VIAL As Ordered ONE (11:37)
[2020-01-29] MEDS ORDERED: LIDOCAINE 2% 100MG/5ML SDV (FOR ANES.) As Ordered ONE (11:38)
[2020-01-29] MEDS ORDERED: fentaNYL 100 MCG/2 ML INJECTION (J3010) As Ordered ONE (12:11)
[2020-01-29] MEDS ORDERED: TRANEXAMIC ACID 100 MG/ML 10ML VIAL As Ordered ONE (13:10)
[2020-01-29] MEDS ORDERED: BUPIVACAINE/EPIN 0.25% 30 ML VIAL As Ordered ONE (13:10)
[2020-01-29] MEDS ORDERED: EPINEPHrine INJ 1 MG/ML 1ML AMP As Ordered ONE (13:11)
[2020-01-29] MEDS ORDERED: ceFAZolin 1GM VIAL (J0690 PER 500MG) As Ordered ONE (13:11)
[2020-01-29] MEDS ORDERED: BUPIVACAINE LIPOSOME/PF 1.3% 20ML VIAL (13.3MG/ML)(EXPAREL)(C9290 PER1MG) As Ordered ONE (13:11)
[2020-01-29] MEDS ORDERED: BUPIVACAINE/DEXTROSE 0.75% 2 ML AMP As Ordered ONE (13:13)
[2020-01-29] MEDS ORDERED: MIDAZOLAM INJ 2MG/2ML VIAL (J2250 PER 1MG) IV ONE (13:45)
[2020-01-29] MEDS ORDERED: fentaNYL 100 MCG/2 ML INJECTION (J3010) IV ONE (13:45)
[2020-01-29] MEDS ORDERED: ePHEDrine SULFATE 25 MG/5 ML(5MG/ML) SYRINGE As Ordered ONE ×2 (14:34→14:42)
[2020-01-29] MEDS ORDERED: EPINEPHrine INJ 1 MG/ML 1ML AMP ONE (14:54)
[2020-01-29] MEDS ORDERED: dexameTHASONE 10MG/1ML VIAL PRES.FREE (J1100 PER 1MG) ONE (14:54)
[2020-01-29] MEDS ORDERED: ROPIvacaine 0.5% 30ML INJECTION (J2795 PER 1MG) ONE (14:54)
[2020-01-29] MEDS ORDERED: PERCOCET 5MG/325MG TAB PO PRN ×2 (17:00)
[2020-01-29] MEDS ORDERED: MORPHINE 2 MG/ML 1ML VIAL (J2270) IV PRN ×2 (17:00)
[2020-01-29] MEDS ORDERED: LR 1,000 ML IV SCH ×2 (17:00)
[2020-01-29] MEDS ORDERED: PROMETHAZINE INJ 25 MG/ML VIAL (J2550) IV PRN (17:00)
[2020-01-29] MEDS ORDERED: ONDANSETRON 4MG/2ML VIAL IV PRN ×2 (17:00)
[2020-01-29] MEDS ORDERED: oxyCODONE 5MG TAB PO PRN (17:00)
[2020-01-29] MEDS ORDERED: MORPHINE 4 MG/ML 1ML VIAL/SYRINGE (J2270) IV PRN (17:00)
[2020-01-29] MEDS ORDERED: fentaNYL 100 MCG/2 ML INJECTION (J3010) IV PRN (17:00)
--- NOTE | 2020-01-29 17:34 | REP ---
Clinical: Status post knee replacement. Technique portable AP and cross-table lateral views right knee . Findings: The patient is status post right knee replacement with normal positioning and appearance to the femoral and tibial components. Overlying postsurgical changes appreciated. Impression: Status post right knee replacement. Electronically Signed by Pratik Dejesus MD 01/29/2020 05:24 P
[2020-01-29 19:30] VITALS: BP 119/71
[2020-01-29 20:30] VITALS: BP 138/85
[2020-01-29] MEDS ORDERED: FLUTICASONE PROP 0.05% NASAL SPRAY 16 GM (FLONASE) NARES PRN (20:30)
--- NOTE | 2020-01-29 20:58 | CR.PDOC ---
General Date of Consultation: Jan 29, 2020 Consultation CHIEF COMPLAINT: R. knee pain HISTORY OF PRESENT ILLNESS: Patient is 69 year old male with PMH OA, HTN, Hypothyroidism, HLD presents for elective R. TKA with orthopedic surgery. He reports having problems with b/l knee and has had L. TKA before and has been compensating on that knee due to pain on the R. side. He had the procedure this afternoon and currently complains of pain in his R. knee but denies any other complaints. PAST MEDICAL HISTORY: Refer to [facility] PAST SURGICAL HISTORY: L. TKA SOCIAL HISTORY: Denies tobacco, alcohol or illicit drug use. FAMILY HISTORY: Mother- CAD and CVA ALLERGIES: Please see below. REVIEW OF SYSTEMS: 10 point review of system negative except as stated in HPI HOME MEDICATIONS: Please see below. PHYSICAL EXAMINATION: General: No acute distress, Alert Eyes: Normal sclera, EOMI HENT: Atraumatic Cardiovascular: Normal rate, normal rhythm. Pulmonary: Clear to auscultation b/l, no wheezing GI: Soft, nontender, nondistended MSK: R. knee dressing c/d/i. Skin: Warm and dry Neuro: CN grossly intact. No focal deficits. Strengths equal b/l. Psych: oriented x 3 LABORATORY DATA: See below. IMAGING: R. Knee XR- Status post right knee replacement. MICROBIOLOGY: Please see below. ASSESSMENT AND PLAN: 1. R. TKA - post op surgical management per Ortho. - On Xarelto for DVT ppx. - Pain control. PT eval and treat. 2. Hypothyroidism - c/w synthroid 50 mcg 3. HTN - BP controlled on Atenolol and Lisinopril. DVT ppx: Lovenox Vital Signs/I&O Vital Signs Date Time Temp Pulse Resp B/P (MAP) Pulse Ox O2 Delivery O2 Flow Rate FiO2 01/29/20 17:35 98.1 66 16 126/66 (86) 98 Room Air 01/29/20 13:50 2 Allergies Coded Allergies: No Known Allergies (Unverified , 03/27/19) Home Medications Scheduled Atenolol (Atenolol) 25 Mg Tablet, 25 MG PO DAILY, (Reported) Atorvastatin Calcium (Lipitor) 20 Mg Tablet, 20 MG PO 2XWK for 30 Days, #30 (Reported) Cholecalciferol (Vitamin D3) (Vitamin D3) 10 Mcg Tablet, 5 MCG PO DAILY, ( Reported) Cyanocobalamin (Vitamin B-12) (Vitamin B-12) 500 Mcg Tablet, 500 MCG PO DAILY for 30 Days, #30 (Reported) Levothyroxine Sodium (Levothyroxine Sodium) 50 Mcg Tablet, 50 MCG PO DAILY for 30 Days, #30 (Reported) Lisinopril (Lisinopril) 20 Mg Tablet, 20 MG PO DAILY for 30 Days, #30 (Reported) Scheduled PRN Fluticasone Propionate (Flonase Allergy Relief) 9.9 Ml Marks.susp, 2 SPRAY NARES DAILY PRN for NASAL CONGESTION for 30 Days, #9.9 (Reported) JOSÉ SMITH MD Jan 29, 2020 20:58
[2020-01-29 21:30] VITALS: BP 130/71
[2020-01-29] MEDS: ceFAZolin SOD 2 GM in IV 1 EA IV SCH (22:24)
[2020-01-29 22:30] VITALS: BP 129/70
[2020-01-29 23:30] VITALS: BP 102/58
[2020-01-30 02:00] VITALS: BP 107/60
[2020-01-30] MEDS: ACETAMINOPHEN TAB 650MG DOSE (2X325MG) PO PRN ×2 (05:36→15:48)
[2020-01-30] MEDS: ceFAZolin SOD 2 GM in IV 1 EA IV SCH (05:36)
[2020-01-30 06:00] VITALS: BP 108/60
[2020-01-30] MEDS ORDERED: LEVOTHYROXINE 50MCG TABLET (0.05MG) PO SCH (06:00)
[2020-01-30] MEDS ORDERED: XARE10TA PO (06:43)
[2020-01-30] MEDS ORDERED: PERC5TAB12 PO (06:43)
[2020-01-30 07:32] LABS: HEMATOCRIT 34.4 % (42.0-52.0); HEMOGLOBIN 11.5 g/dl (13.5-17.5); MEAN CORPUSCULAR HEMOGLOBIN 31.6 pg (27.0-33.0); MEAN CORPUSCULAR HGB CONC 33.4 g/dl (32.0-36.5); MEAN CORPUSCULAR VOLUME 94.5 fl (80.0-96.0); PLATELET COUNT, AUTOMATED 179 10^3/uL (150-450); RED BLOOD COUNT 3.64 10^6/uL (4.30-6.10); WHITE BLOOD COUNT 17.8 10^3/uL (4.0-10.0)
[2020-01-30 07:55] VITALS: BP 108/54
[2020-01-30] MEDS ORDERED: lisinopriL 20 MG TAB PO SCH (09:00)
[2020-01-30] MEDS ORDERED: atenoloL 25 MG TAB PO SCH (09:00)
[2020-01-30 10:00] VITALS: BP 123/72
[2020-01-30 14:00] VITALS: BP 114/67
[2020-01-30] MEDS ORDERED: RIVAROXABAN 10 MG TAB (XARELTO) PO SCH (18:00)
--- NOTE | 2020-02-01 10:36 | RO ---
DATE OF PROCEDURE: 01/29/2020 PREOPERATIVE DIAGNOSIS: Right knee osteoarthritis. POSTOPERATIVE DIAGNOSIS: Right knee osteoarthritis. PROCEDURE PERFORMED: Right total knee replacement posterior stabilized. SURGEON: Dr. Leonel Malone. [employer] DEPARTMENT CHAIR: Laura Newman PA-C ANESTHESIA: Blocked with spinal, Dr. Alcaraz. ESTIMATED BLOOD LOSS: Less than 100 mL, replaced with crystalloid. COMPLICATIONS: No complications. TOURNIQUET: Tourniquet was inflated. Tourniquet time was approximately 65 minutes at 250 mmHg. COMPONENTS USED: Include DePuy Dajie system size 5 femoral component, size 7 tibial component, 10 mm polyethylene posterior stabilized spacer, 35 mm patella button. CONSENT: Consent reviewed in detail with the patient prior to procedure including deepa discussion of the pathology involved, procedure proposed, alternatives including doing nothing, risks including but not limited to pain, failure, infection, bleeding blood loss, incomplete relief of symptoms, blood clots, need for more surgery and other issues. The patient agrees to proceed with surgery. DESCRIPTION OF PROCEDURE: Identified in the holding area, site and side verified, brought to the operating room. After the femoral block was administered spinal anesthesia was administered. The patient was positioned for exposure of the right lower extremity for arthroplasty. Tourniquet was high on the thigh. Next, time-out was accomplished. Once he was sterilely prepped and draped in usual fashion we elevated the extremity. [place] exsanguination was accomplished. Tourniquet was inflated. Standard midline parapatellar arthrotomy was accomplished. The skin was opened with a 21 blade, developed down through skin subcuticular tissues to the extensor mechanism. Extensor mechanism was opened with a 10-blade medial parapatellar arthrotomy. Infrapatellar fat pad was removed. Medial release was accomplished. Knee was placed in flexed position. The femoral canal was opened using a canal opening drill. The intramedullary femoral guide was installed 5 degrees, 3 degrees external rotation, pinned into place. Ms Newman made the distal femoral cut using the oscillating saw while I positioned Onur retractors protecting the collateral ligaments. Next, AP sizing guide was utilized predicting a size 5. 4-in-1 cutting guide was applied and pinned into place. Ms. Newman positioned Onur retractors while I utilized oscillating saw to make the anterior, posterior followed by the chamfer cuts. This guide was then removed. Notch cutting guide was installed. Femoral notch cut was made using the oscillating saw. The knee was positioned for application of the extramedullary tibial guide. This was pinned into place 3 degrees posterior slope 10 mm off the good side due to the varus alignment. It was pinned into place. Drop conchis was utilized to verify alignment. Oscillating saw was utilized to make the tibial cut while Ms. Newman positioned Onur retractors protecting the collateral ligament and posterior structures. Next, once this was accomplished lamina spreaders utilized to open the knee. Curved osteotome was utilized to clear posterior osteophyte. Meniscus was removed using a 15-blade knife. Once this was accomplished the sizing block was applied predicting a size 10 mm polyethylene component in extension as well as flexion. Once this was accomplished tibial surface was subluxed anteriorly using the posterior retractor. I applied the tibial trial tray size 7 and it fit appropriately and was pinned into place followed by application of the broach guide drilling and broaching. The broach was left in place. Next, trial femoral component was installed. Trial tibial polyethylene was installed, 10 mm fit appropriately. He was placed through a range of motion. Patella tracking was excellent. Patella was everted posterior patella cut made with the oscillating saw. Patella sized for a size 35 and drilled. Trial patella was installed, placed through a range of motion, good patella stability and tracking. Next, once this was accomplished. Ms. Newman stepped to the back table to prepare the bone cement. I prepared the bone surfaces with pulse lavage and dried them. I also instilled Exparel solution in the posterior capsule and around the knee. Next. This was accomplished using a 22-gauge spinal needle. Next, once the cement was of appropriate consistency, the femoral condyles were coated posteriorly. I then cemented the tibial tray into place. It was tamped into place. Excess cement cleared with curettes. Next, cement was applied to the femoral side. The non-trial femoral component was installed, tamped into place, excess cement cleared with curettes. Next, the 10 mm spacer posterior stabilized was installed. The knee was placed in the extended position. Patella was everted, 35 mm patella was cemented into place, held with a clamp, excess cement cleared with curettes. Next, once the cement was the appropriate consistency and after the TXA solution had stood in the knee for 1 minute, we utilized pulse lavage. The knee was again placed through a range of motion. tracking remained excellent. Arthrotomy was closed with interrupted and Stratafix stitch. Deep dermis was closed with interrupted stitch. Pernio dressing was utilized on skin. For further details please refer to medical record. Tierra Paty participated in the entire case in the capacity of operator/assistant foreman.
== END 2020-01-30 18:45 | disposition home or self-care (01) | DRG 470 ==
LOC: M OR 09:11 → M MS5PR 17:45
PROVIDERS: ADMIT Orthopaedic Surgery; ATTEND Orthopaedic Surgery
PROC: 0SRC0J9 Replacement of Right Knee Joint with Synthetic Substitute, Cemented, Open Approach (ICD-10-PCS; principal; 2020-01-29 11:30)
DX: M17.11 Unilateral primary osteoarthritis, right knee (principal); I10 Essential (primary) hypertension; E03.9 Hypothyroidism, unspecified; E78.5 Hyperlipidemia, unspecified; Z79.899 Other long term (current) drug therapy

== ENCOUNTER 2020-02-04 12:27 | Emergency (ER) | payer MEDICARE, OTHER ==
[~2020-02-04 12:27] MED LIST changes: -LIDOCAINE 1% MDV 20ML VIAL SQ PRN
[2020-02-04] MEDS ORDERED: BACL10TA2 PO (12:46)
[2020-02-04] MEDS ORDERED: chlorproMAZINE 25 MG TAB (Q0161) PO ONE (13:00)
[2020-02-04 13:16] LABS: BASO # 0.1 10^3/uL (0.0-0.2); BASO % 0.6 % (0.0-1.0); EOS # 0.2 10^3/uL (0.0-0.5); EOS % 1.7 % (0.0-3.0); HEMATOCRIT 37.4 % (42.0-52.0); HEMOGLOBIN 12.3 g/dl (13.5-17.5); LYMPH # 1.8 10^3/uL (1.5-5.0); LYMPH % 12.8 % (24.0-44.0); MEAN CORPUSCULAR HEMOGLOBIN 31.2 pg (27.0-33.0); MEAN CORPUSCULAR HGB CONC 32.9 g/dl (32.0-36.5); MEAN CORPUSCULAR VOLUME 94.9 fl (80.0-96.0); MONO # 1.1 10^3/uL (0.0-0.8); MONO % 8.1 % (0.0-5.0); NEUTROPHILS # 10.4 10^3/uL (1.5-8.5); NEUTROPHILS % 75.6 % (36.0-66.0); PLATELET COUNT, AUTOMATED 341 10^3/uL (150-450); RED BLOOD COUNT 3.94 10^6/uL (4.30-6.10); WHITE BLOOD COUNT 13.7 10^3/uL (4.0-10.0)
[2020-02-04] MEDS ORDERED: CHLOR25TA PO (13:49)
[2020-02-04 13:51] LABS: BLOOD UREA NITROGEN 18 MG/DL (7-18); CALCIUM LEVEL 8.4 MG/DL (8.8-10.2); CARBON DIOXIDE LEVEL 27 MEQ/L (21-32); CHLORIDE LEVEL 102 MEQ/L (98-107); CK-MB VALUE MASS < 1.0 NG/ML (<3.6); CPK CREATINE PHOSPHOKINASE 38 U/L (39-308); CREATININE FOR GFR 0.84 MG/DL (0.70-1.30); FREE T4 1.06 NG/DL (0.76-1.46); GLOMERULAR FILTRATION RATE > 60.0 (>42); GLUCOSE, FASTING 117 MG/DL (70-100); MB/CK RELATIVE INDEX 2.63 (< OR =4); POTASSIUM SERUM 4.5 MEQ/L (3.5-5.1); SODIUM LEVEL 136 MEQ/L (136-145); TROPONIN I < 0.02 NG/ML (< 0.10)
[2020-02-04 14:11] VITALS: BP 107/58
--- NOTE | 2020-02-04 15:59 | ECGEPIP ---
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
== END 2020-02-04 14:13 | disposition home or self-care (01) ==
LOC: M ED 12:27
DX: R06.6 Hiccough (principal); I10 Essential (primary) hypertension; J45.909 Unspecified asthma, uncomplicated; E78.5 Hyperlipidemia, unspecified; K57.90 Diverticulosis of intestine, part unspecified, without perforation or abscess without bleeding; E03.9 Hypothyroidism, unspecified; Z79.02 Long term (current) use of antithrombotics/antiplatelets; Z79.899 Other long term (current) drug therapy
CPT/HCPCS: 80048; 82550; 82553; 84439; 84443; 84484; 85025; 93005; 99284; Q0161

== ENCOUNTER → 2020-08-21 | Outpatient (REF) | payer OTHER ==
[~2020-08-21] MED LIST changes: +BACL10TA2 PO; +CHLOR25TA PO; -LISI-538 PO; +LISI20TA33 PO
[2020-08-21 14:13] LABS: BASO # 0.1 10^3/uL (0.0-0.2); BASO % 0.9 % (0.0-1.0); EOS # 0.3 10^3/uL (0.0-0.5); EOS % 4.5 % (0.0-3.0); HEMATOCRIT 42.5 % (42.0-52.0); HEMOGLOBIN 13.9 g/dl (13.5-17.5); LYMPH # 2.2 10^3/uL (1.5-5.0); LYMPH % 33.5 % (24.0-44.0); MEAN CORPUSCULAR HEMOGLOBIN 31.3 pg (27.0-33.0); MEAN CORPUSCULAR HGB CONC 32.7 g/dl (32.0-36.5); MEAN CORPUSCULAR VOLUME 95.7 fl (80.0-96.0); MONO # 0.5 10^3/uL (0.0-0.8); NEUTROPHILS # 3.4 10^3/uL (1.5-8.5); NEUTROPHILS % 52.8 % (36.0-66.0); PLATELET COUNT, AUTOMATED 217 10^3/uL (150-450); RED BLOOD COUNT 4.44 10^6/uL (4.30-6.10); WHITE BLOOD COUNT 6.5 10^3/uL (4.0-10.0)
[2020-08-21 14:46] LABS: ALBUMIN 4.1 GM/DL (3.2-5.2); ALT/SGPT 25 U/L (12-78); BILIRUBIN,TOTAL 0.6 MG/DL (0.2-1.0); BLOOD UREA NITROGEN 14 MG/DL (7-18); CALCIUM LEVEL 8.9 MG/DL (8.8-10.2); CARBON DIOXIDE LEVEL 29 MEQ/L (21-32); CHLORIDE LEVEL 106 MEQ/L (98-107); CHOLESTEROL LEVEL 158 MG/DL (<200); CHOLESTEROL RISK RATIO 4.647 (<5); CREATININE FOR GFR 0.92 MG/DL (0.70-1.30); FERRITIN 216 NG/ML (26-388); FREE T4 0.76 NG/DL (0.76-1.46); GLOMERULAR FILTRATION RATE > 60.0 (>42); GLUCOSE, FASTING 105 MG/DL (70-100); HDL CHOLESTEROL 34 MG/DL (>40); IRON (FE) 100 UG/DL (65-175); LDL CHOLESTEROL 80 MG/DL (<100); NON-HDL-C 124 MG/DL; PERCENT SATURATION 30.4 % (19.7-50.0); POTASSIUM SERUM 3.9 MEQ/L (3.5-5.1); SODIUM LEVEL 140 MEQ/L (136-145); TOTAL IRON BINDING CAPACITY 329 UG/DL (250-450); TRIGLYCERIDES LEVEL 220 MG/DL (<150)
[2020-08-21 14:48] LABS: PTH INTACT 58.6 PG/ML (18.5-88.0); TOTAL 25(OH) VITAMIN D 44.3 NG/ML (30.0-100.0)
[2020-08-23 13:31] LABS: ALBUMIN 4.37 GM/DL (3.29-5.55); ALBUMIN % 62.4 % (55.8-66.1); ALPHA-1-GLOBULIN % 2.5 % (2.9-4.9); ALPHA-1-GLOBULINS 0.18 GM/DL (0.17-0.41); ALPHA-2-GLOBULINS 0.73 GM/DL (0.42-0.99); ALPHA-2-GLOBULINS % 10.4 % (7.1-11.8); BETA-1-GLOBULINS % 5.7 % (4.7-7.2); BETA-2-GLOBULINS 0.39 GM/DL (0.19-0.55); BETA-2-GLOBULINS % 5.6 % (3.2-6.5); GAMMA GLOBULIN % 13.4 % (11.1-18.8); GAMMA GLOBULINS 0.94 GM/DL (0.65-1.58)
== END ==
LOC: M SFHCPLAZ 12:10
PROVIDERS: ATTEND Family Medicine
DX: Z12.5 Encounter for screening for malignant neoplasm of prostate (principal); E53.8 Deficiency of other specified B group vitamins; E03.9 Hypothyroidism, unspecified; E83.110 Hereditary hemochromatosis; E55.9 Vitamin D deficiency, unspecified; I10 Essential (primary) hypertension; E78.2 Mixed hyperlipidemia

== ENCOUNTER → 2021-01-06 | Outpatient (REF) | payer OTHER ==
[2021-01-06 15:30] LABS: BASO # 0.1 10^3/uL (0.0-0.2); EOS # 0.2 10^3/uL (0.0-0.5); EOS % 2.6 % (0.0-3.0); HEMATOCRIT 47.1 % (42.0-52.0); HEMOGLOBIN 15.2 g/dl (13.5-17.5); LYMPH # 2.2 10^3/uL (1.5-5.0); LYMPH % 29.3 % (24.0-44.0); MEAN CORPUSCULAR HEMOGLOBIN 31.1 pg (27.0-33.0); MEAN CORPUSCULAR HGB CONC 32.3 g/dl (32.0-36.5); MEAN CORPUSCULAR VOLUME 96.5 fl (80.0-96.0); MONO # 0.6 10^3/uL (0.0-0.8); MONO % 8.1 % (2.0-8.0); NEUTROPHILS # 4.5 10^3/uL (1.5-8.5); NEUTROPHILS % 58.5 % (36.0-66.0); PLATELET COUNT, AUTOMATED 231 10^3/uL (150-450); RED BLOOD COUNT 4.88 10^6/uL (4.30-6.10); WHITE BLOOD COUNT 7.6 10^3/uL (4.0-10.0)
[2021-01-06 15:46] LABS: HEMOGLOBIN A1c 5.2 %
[2021-01-06 16:00] LABS: ALBUMIN 4.1 GM/DL (3.2-5.2); ALT/SGPT 22 U/L (12-78); BLOOD UREA NITROGEN 18 MG/DL (7-18); CARBON DIOXIDE LEVEL 27 MEQ/L (21-32); CHLORIDE LEVEL 107 MEQ/L (98-107); CREATININE FOR GFR 0.91 MG/DL (0.70-1.30); FREE T4 0.79 NG/DL (0.76-1.46); GLOMERULAR FILTRATION RATE > 60.0 (>42); GLUCOSE, FASTING 75 MG/DL (70-100); NT-PRO BNP 49 PG/ML (<125); POTASSIUM SERUM 4.5 MEQ/L (3.5-5.1); SODIUM LEVEL 141 MEQ/L (136-145); TOTAL PROTEIN 7.6 GM/DL (6.4-8.2); VITAMIN B12 LEVEL 503 PG/ML (247-911)
[2021-01-06 20:17] LABS: HEMATOCRIT 47.1 % (42.0-52.0)
== END ==
LOC: M SFHCPLAZ 13:34
PROVIDERS: ATTEND Family Medicine
DX: D75.89 Other specified diseases of blood and blood-forming organs (principal); R73.01 Impaired fasting glucose; E03.9 Hypothyroidism, unspecified

== ENCOUNTER → 2021-08-03 | Outpatient (CLI) | payer OTHER ==
[2021-08-03 12:40] LABS: ALT/SGPT 22 U/L (12-78); BILIRUBIN,TOTAL 0.7 MG/DL (0.2-1.0); BLOOD UREA NITROGEN 17 MG/DL (7-18); CALCIUM LEVEL 8.7 MG/DL (8.8-10.2); CARBON DIOXIDE LEVEL 27 MEQ/L (21-32); CHLORIDE LEVEL 108 MEQ/L (98-107); CHOLESTEROL LEVEL 154 MG/DL (<200); CHOLESTEROL RISK RATIO 4.529 (<5); CREATININE FOR GFR 0.92 MG/DL (0.70-1.30); FERRITIN 265 NG/ML (26-388); GLOMERULAR FILTRATION RATE > 60.0 (>42); GLUCOSE, FASTING 79 MG/DL (70-100); HDL CHOLESTEROL 34 MG/DL (>40); IRON (FE) 112 UG/DL (65-175); LDL CHOLESTEROL 83 MG/DL (<100); NON-HDL-C 120 MG/DL; PERCENT SATURATION 33.5 % (19.7-50.0); POTASSIUM SERUM 4.6 MEQ/L (3.5-5.1); SODIUM LEVEL 142 MEQ/L (136-145); TOTAL IRON BINDING CAPACITY 334 UG/DL (250-450); TOTAL PROTEIN 7.5 GM/DL (6.4-8.2); TRIGLYCERIDES LEVEL 186 MG/DL (<150)
[2021-08-04 09:47] LABS: PTH INTACT 37.7 PG/ML (18.5-88.0); TOTAL 25(OH) VITAMIN D 54.1 NG/ML (30.0-100.0)
== END ==
LOC: M LAB 11:34
PROVIDERS: ATTEND Family Medicine
DX: E55.9 Vitamin D deficiency, unspecified (principal)

== ENCOUNTER → 2021-08-22 | Outpatient (CLI) | payer OTHER | LOC: M WUC 14:17 | PROVIDERS: ATTEND Physician Assistant | DX: M51.9 Unspecified thoracic, thoracolumbar and lumbosacral intervertebral disc disorder (principal); M41.9 Scoliosis, unspecified ==

== ENCOUNTER → 2021-09-12 | Outpatient (CLI) | payer OTHER | LOC: M RAD 12:36 | PROVIDERS: ATTEND Physician Assistant | DX: M51.36 Other intervertebral disc degeneration, lumbar region (principal); Z53.9 Procedure and treatment not carried out, unspecified reason ==

== ENCOUNTER → 2022-03-22 | Outpatient (CLI) | payer OTHER ==
[2022-03-22 13:05] LABS: BASO # 0.1 10^3/uL (0.0-0.2); BASO % 0.9 % (0.0-1.0); EOS # 0.2 10^3/uL (0.0-0.5); EOS % 2.7 % (0.0-3.0); HEMATOCRIT 42.5 % (42.0-52.0); HEMOGLOBIN 14.2 g/dl (13.5-17.5); LYMPH # 2.1 10^3/uL (1.5-5.0); LYMPH % 27.1 % (24.0-44.0); MEAN CORPUSCULAR HEMOGLOBIN 32.3 pg (27.0-33.0); MEAN CORPUSCULAR HGB CONC 33.4 g/dl (32.0-36.5); MEAN CORPUSCULAR VOLUME 96.6 fl (80.0-96.0); MONO # 0.6 10^3/uL (0.0-0.8); MONO % 8.1 % (2.0-8.0); NEUTROPHILS # 4.7 10^3/uL (1.5-8.5); NEUTROPHILS % 60.8 % (36.0-66.0); PLATELET COUNT, AUTOMATED 206 10^3/uL (150-450); WHITE BLOOD COUNT 7.8 10^3/uL (4.0-10.0)
[2022-03-22 13:44] LABS: ALBUMIN 3.6 GM/DL (3.2-5.2); ALT/SGPT 22 U/L (12-78); BILIRUBIN,TOTAL 0.7 MG/DL (0.2-1.0); BLOOD UREA NITROGEN 14 MG/DL (7-18); CALCIUM LEVEL 8.5 MG/DL (8.8-10.2); CARBON DIOXIDE LEVEL 27 MEQ/L (21-32); CHLORIDE LEVEL 110 MEQ/L (98-107); CREATININE FOR GFR 0.84 MG/DL (0.70-1.30); GLOMERULAR FILTRATION RATE > 60.0 (>42); GLUCOSE, FASTING 88 MG/DL (70-100); NT-PRO BNP 74 PG/ML (<125); POTASSIUM SERUM 4.3 MEQ/L (3.5-5.1); SODIUM LEVEL 142 MEQ/L (136-145); TOTAL PROTEIN 6.9 GM/DL (6.4-8.2)
[2022-03-23 10:15] LABS: VITAMIN B12 LEVEL 431 PG/ML (247-911)
== END ==
LOC: M LAB 12:36
PROVIDERS: ATTEND Family Medicine
DX: D75.89 Other specified diseases of blood and blood-forming organs (principal); I10 Essential (primary) hypertension; Z12.5 Encounter for screening for malignant neoplasm of prostate

== ENCOUNTER → 2022-12-19 | Outpatient (CLI) | payer OTHER ==
[2022-12-19 10:47] LABS: HEMATOCRIT 41.7 % (42.0-52.0)
[2022-12-19 11:18] LABS: ALBUMIN 3.8 G/DL (3.2-5.2); ALKALINE PHOSPHATASE 94 U/L (46-116); ALT/SGPT 18 U/L (7.0-40); AST/SGOT 17 U/L (<34); BLOOD UREA NITROGEN 12 MG/DL (9-23); CALCIUM LEVEL 8.9 MG/DL (8.3-10.6); CARBON DIOXIDE LEVEL 27 MMOL/L (20-31); CHLORIDE LEVEL 106 MMOL/L (98-107); CHOLESTEROL LEVEL 152 MG/DL (<200); CREATININE FOR GFR 0.84 MG/DL (0.70-1.30); FERRITIN 220.5 NG/ML (10.5-307.3); FREE T4 0.89 NG/DL (0.89-1.76); GLOMERULAR FILTRATION RATE > 60.0 (>42); GLUCOSE, FASTING 98 MG/DL (74-106); HDL CHOLESTEROL 32.3 MG/DL (>40); IRON (FE) 124 UG/DL (65-175); LDL CHOLESTEROL 86.3 MG/DL (<100); NON-HDL-C 119.7 MG/DL; PERCENT SATURATION 40.7 % (19.7-50.0); POTASSIUM SERUM 4.6 MMOL/L (3.5-5.1); SODIUM LEVEL 138 MMOL/L (136-145); THYROID STIMULATING HORMONE 2.772 uIU/ML (0.55-4.78); TOTAL IRON BINDING CAPACITY 305 UG/DL (250-425); TOTAL PROTEIN 6.5 G/DL (5.7-8.2); TRIGLYCERIDES LEVEL 167 MG/DL (<150)
== END ==
LOC: M LAB 10:17
PROVIDERS: ATTEND Family Medicine
DX: E83.110 Hereditary hemochromatosis (principal); E53.8 Deficiency of other specified B group vitamins; I10 Essential (primary) hypertension; E78.2 Mixed hyperlipidemia; Z12.5 Encounter for screening for malignant neoplasm of prostate; E03.9 Hypothyroidism, unspecified
CPT/HCPCS: 36415; 80053; 80061; 82728; 82747; 83550; 83880; 84439; 84443; G0103

== ENCOUNTER → 2023-05-14 | Outpatient (REF) | payer OTHER ==
[~2023-05-14] MED LIST changes: +DICL100G10 TOP; -DICL1GEL3 TOP
== END ==
LOC: M SFHCPLAZ 17:57
PROVIDERS: ATTEND Family Medicine
DX: I10 Essential (primary) hypertension (principal); E03.9 Hypothyroidism, unspecified; E53.8 Deficiency of other specified B group vitamins; Z53.9 Procedure and treatment not carried out, unspecified reason

== ENCOUNTER → 2023-09-09 | Outpatient (CLI) | payer OTHER ==
[2023-09-09 14:24] LABS: BASO # 0.1 10^3/uL (0.0-0.2); BASO % 0.8 % (0.0-1.0); EOS # 0.1 10^3/uL (0.0-0.5); EOS % 0.8 % (0.0-3.0); HEMATOCRIT 44.1 % (42.0-52.0); HEMOGLOBIN 14.7 g/dl (13.5-17.5); LYMPH # 1.3 10^3/uL (1.5-5.0); LYMPH % 13.9 % (24.0-44.0); MEAN CORPUSCULAR HEMOGLOBIN 32.7 pg (27.0-33.0); MEAN CORPUSCULAR HGB CONC 33.3 g/dl (32.0-36.5); MEAN CORPUSCULAR VOLUME 98.2 fl (80.0-96.0); MONO # 1.1 10^3/uL (0.0-0.8); MONO % 11.8 % (2.0-8.0); NEUTROPHILS # 6.7 10^3/uL (1.5-8.5); NEUTROPHILS % 72.3 % (36.0-66.0); PLATELET COUNT, AUTOMATED 184 10^3/uL (150-450); RED BLOOD COUNT 4.49 10^6/uL (4.30-6.10); WHITE BLOOD COUNT 9.3 10^3/uL (4.0-10.0)
[2023-09-09 15:05] LABS: ALKALINE PHOSPHATASE 100 U/L (46-116); ALT/SGPT 20 U/L (7.0-40); AST/SGOT 15 U/L (<34); BILIRUBIN,TOTAL 0.9 MG/DL (0.3-1.2); BLOOD UREA NITROGEN 15 MG/DL (9-23); CALCIUM LEVEL 8.6 MG/DL (8.3-10.6); CARBON DIOXIDE LEVEL 28 MMOL/L (20-31); CHLORIDE LEVEL 106 MMOL/L (98-107); CREATININE FOR GFR 1.01 MG/DL (0.70-1.30); FREE T4 0.89 NG/DL (0.89-1.76); GLOMERULAR FILTRATION RATE > 60.0 (>42); GLUCOSE, FASTING 91 MG/DL (74-106); POTASSIUM SERUM 4.4 MMOL/L (3.5-5.1); SODIUM LEVEL 138 MMOL/L (136-145); THYROID STIMULATING HORMONE 1.976 uIU/ML (0.55-4.78); TOTAL PROTEIN 7.1 G/DL (5.7-8.2)
[2023-09-09 15:06] LABS: VITAMIN B12 LEVEL 435 PG/ML (211-911)
== END ==
LOC: M PLALAB 11:32
PROVIDERS: ATTEND Family Medicine
DX: I10 Essential (primary) hypertension (principal); E03.9 Hypothyroidism, unspecified

== ENCOUNTER → 2023-12-09 | Outpatient (REF) | payer OTHER | LOC: M SFHCPLAZ 13:59 | PROVIDERS: ATTEND Family Medicine | DX: Z53.9 Procedure and treatment not carried out, unspecified reason (principal) ==

== ENCOUNTER → 2023-12-09 | Outpatient (CLI) | payer OTHER ==
[2023-12-09 12:47] LABS: BASO # 0.1 10^3/uL (0.0-0.2); BASO % 0.9 % (0.0-1.0); EOS # 0.6 10^3/uL (0.0-0.5); EOS % 6.8 % (0.0-3.0); HEMOGLOBIN 14.6 g/dl (13.5-17.5); LYMPH # 2.1 10^3/uL (1.5-5.0); MEAN CORPUSCULAR HEMOGLOBIN 32.3 pg (27.0-33.0); MEAN CORPUSCULAR HGB CONC 33.2 g/dl (32.0-36.5); MEAN CORPUSCULAR VOLUME 97.3 fl (80.0-96.0); MONO # 0.7 10^3/uL (0.0-0.8); MONO % 8.4 % (2.0-8.0); NEUTROPHILS % 58.4 % (36.0-66.0); PLATELET COUNT, AUTOMATED 206 10^3/uL (150-450); RED BLOOD COUNT 4.52 10^6/uL (4.30-6.10); WHITE BLOOD COUNT 8.5 10^3/uL (4.0-10.0)
[2023-12-09 12:49] LABS: ALBUMIN 3.9 G/DL (3.2-5.2); ALKALINE PHOSPHATASE 108 U/L (46-116); ALT/SGPT 23 U/L (7.0-40); AST/SGOT 15 U/L (<34); BILIRUBIN,TOTAL 0.9 MG/DL (0.3-1.2); BLOOD UREA NITROGEN 12 MG/DL (9-23); CALCIUM LEVEL 9.2 MG/DL (8.3-10.6); CARBON DIOXIDE LEVEL 28 MMOL/L (20-31); CHLORIDE LEVEL 106 MMOL/L (98-107); CREATININE FOR GFR 0.87 MG/DL (0.70-1.30); GLOMERULAR FILTRATION RATE > 60.0 (>42); GLUCOSE, FASTING 97 MG/DL (74-106); POTASSIUM SERUM 5.1 MMOL/L (3.5-5.1); SODIUM LEVEL 139 MMOL/L (136-145); TOTAL PROTEIN 6.8 G/DL (5.7-8.2)
== END ==
LOC: M PLALAB 10:26
PROVIDERS: ATTEND Family Medicine
DX: R55 Syncope and collapse (principal)

== ENCOUNTER → 2024-04-14 | Outpatient (REF) | payer OTHER | LOC: M SFHCPLAZ 16:13 | PROVIDERS: ATTEND Family Medicine | DX: K74.00 Hepatic fibrosis, unspecified (principal); E83.110 Hereditary hemochromatosis; D75.89 Other specified diseases of blood and blood-forming organs; E03.9 Hypothyroidism, unspecified; Z12.5 Encounter for screening for malignant neoplasm of prostate; Z53.9 Procedure and treatment not carried out, unspecified reason ==

== ENCOUNTER → 2025-02-25 | Outpatient (CLI) | payer OTHER ==
[2025-02-25 13:16] LABS: BASO # 0.1 10^3/uL (0.0-0.2); BASO % 1.1 % (0.0-1.0); EOS # 0.1 10^3/uL (0.0-0.5); EOS % 0.8 % (0.0-3.0); LYMPH # 1.2 10^3/uL (1.5-5.0); LYMPH % 13.2 % (24.0-44.0); MONO # 1.1 10^3/uL (0.0-0.8); MONO % 11.3 % (2.0-8.0); NEUTROPHILS # 6.8 10^3/uL (1.5-8.5); NEUTROPHILS % 73.0 % (36.0-66.0); PLATELET COUNT, AUTOMATED 225 10^3/uL (150-450)
[2025-02-25 13:46] LABS: CHOLESTEROL LEVEL 110 MG/DL (<200); CHOLESTEROL RISK RATIO 3.57 (<5); CPK CREATINE PHOSPHOKINASE 59 U/L (46-171); LDL CHOLESTEROL 57.8 MG/DL (<100); NON-HDL-C 79.2 MG/DL; TRIGLYCERIDES LEVEL 107 MG/DL (<150)
[2025-02-25 13:47] LABS: IRON (FE) 28 UG/DL (65-175); PERCENT SATURATION 10.0 % (19.7-50.0)
[2025-02-25 14:24] LABS: HEPATITIS C VIRUS ABY INDEX < 0.02 INDEX (<0.8)
== END ==
LOC: M LAB 12:36
PROVIDERS: ATTEND Family Medicine
DX: E83.110 Hereditary hemochromatosis (principal); E78.2 Mixed hyperlipidemia; Z12.5 Encounter for screening for malignant neoplasm of prostate

== ENCOUNTER 2025-03-01 18:16 | Inpatient (IN) | payer OTHER ==
[~2025-03-01] VITALS: Ht 175.3 cm; Wt 76.9 kg
[~2025-03-01 18:16] MED LIST changes: -BRIN8DRO OU; -CEFD1CAP9 PO; -FOLI1TAB11 PO; -LEVOTAB10 PO; -LISI10TA22 PO; -MELO15TA28 PO; -MIRT-10 PO; -MUCI120T PO; -NETA2.5D2 OU; -ROSU10TA61 PO; -TAMS1CAP17 PO; -VITA500T40 PO
[2025-03-01 19:07] LABS: BASO # 0.1 10^3/uL (0.0-0.2); BASO % 0.4 % (0.0-1.0); EOS # 0.4 10^3/uL (0.0-0.5); EOS % 3.0 % (0.0-3.0); LYMPH # 2.2 10^3/uL (1.5-5.0); LYMPH % 17.7 % (24.0-44.0); MONO # 0.9 10^3/uL (0.0-0.8); MONO % 7.3 % (2.0-8.0); NEUTROPHILS # 8.9 10^3/uL (1.5-8.5); NEUTROPHILS % 71.0 % (36.0-66.0); PLATELET COUNT, AUTOMATED 246 10^3/uL (150-450)
[2025-03-01 19:38] LABS: ALT/SGPT 16.0 U/L (7.0-40); AST/SGOT 24.0 U/L (<34); CK-MB VALUE MASS 1.8 NG/ML (<3.6)
[2025-03-01 19:39] LABS: RSV AMPLIFICATION NEGATIVE (NEGATIVE)
[2025-03-01] MEDS: NS (Normal Saline) 0.9% 1,000 ML IV ONE (19:44)
[2025-03-01 19:52] LABS: C REACTIVE PROTEIN QUANTITATIV 0.72 MG/DL (<1.0)
[2025-03-01 20:07] LABS: CPK CREATINE PHOSPHOKINASE 33.0 U/L (46-171); MB/CK RELATIVE INDEX 5.45 (< OR =4)
[2025-03-01] MEDS ORDERED: CEFD1CAP9 PO (21:30)
[2025-03-01] MEDS ORDERED: MIRT-10 PO (21:30)
[2025-03-01] MEDS ORDERED: LEVOTAB10 PO (21:30)
[2025-03-01] MEDS ORDERED: MELO15TA28 PO (21:30)
[2025-03-01] MEDS ORDERED: BRIN8DRO OU (21:30)
[2025-03-01] MEDS ORDERED: ROSU10TA61 PO (21:30)
[2025-03-01] MEDS ORDERED: TAMS1CAP17 PO (21:30)
[2025-03-01] MEDS ORDERED: FOLI1TAB11 PO (21:30)
[2025-03-01] MEDS ORDERED: VITA500T40 PO (21:30)
[2025-03-01] MEDS ORDERED: NETA2.5D2 OU (21:30)
[2025-03-01] MEDS ORDERED: LISI10TA22 PO (21:30)
[2025-03-01] MEDS ORDERED: MUCI120T PO (21:31)
[2025-03-01] MEDS ORDERED: HOME MED LIST COMPLETE! XX SCH (21:35)
[2025-03-01 22:04] LABS: KETONE, URINE AUTO RFX NEGATIVE (NEGATIVE); LEUKOCYTE ESTERASE UR AUTO RFX NEGATIVE (NEGATIVE); MUCUS, URINE RFX SMALL (NEGATIVE); NITRITE, URINE AUTO RFX NEGATIVE (NEGATIVE); RBC, URINE AUTO RFX 1 /HPF (0-3); SQUAM EPITHELIAL CELL UR AURFX 1 /HPF (0-6); WBC, URINE AUTO RFX 2 /HPF (0-3)
[2025-03-01 23:00] LABS: CALCIUM LEVEL 9.2 MG/DL (8.3-10.6); CARBON DIOXIDE LEVEL 20.0 MMOL/L (20-31); CHLORIDE LEVEL 106.0 MMOL/L (98-107); CREATININE FOR GFR 2.15 MG/DL (0.70-1.30); GLOMERULAR FILTRATION RATE 30.9 (>42); POTASSIUM SERUM 5.0 MMOL/L (3.5-5.1); SODIUM LEVEL 141.0 MMOL/L (136-145)
[2025-03-01] MEDS ORDERED: ACETAMINOPHEN 325 MG TAB PO PRN (23:25)
[2025-03-02] MEDS: LR 1,000 ML IV SCH (00:45)
[2025-03-02 07:28] LABS: BASO # 0.1 10^3/uL (0.0-0.2); BASO % 0.8 % (0.0-1.0); EOS # 0.3 10^3/uL (0.0-0.5); EOS % 4.2 % (0.0-3.0); LYMPH # 1.9 10^3/uL (1.5-5.0); LYMPH % 25.4 % (24.0-44.0); MONO # 0.6 10^3/uL (0.0-0.8); MONO % 7.4 % (2.0-8.0); NEUTROPHILS # 4.7 10^3/uL (1.5-8.5); NEUTROPHILS % 61.7 % (36.0-66.0); PLATELET COUNT, AUTOMATED 213 10^3/uL (150-450)
[2025-03-02 07:52] LABS: CALCIUM LEVEL 8.3 MG/DL (8.3-10.6); CARBON DIOXIDE LEVEL 22.0 MMOL/L (20-31); CHLORIDE LEVEL 110.0 MMOL/L (98-107); CREATININE FOR GFR 1.43 MG/DL (0.70-1.30); GLOMERULAR FILTRATION RATE 50.5 (>42); MAGNESIUM LEVEL 1.9 MG/DL (1.8-2.4); POTASSIUM SERUM 4.3 MMOL/L (3.5-5.1); SODIUM LEVEL 145.0 MMOL/L (136-145)
[2025-03-02] MEDS: guaiFENesin ER TABLET 600 MG TAB PO SCH (08:39)
[2025-03-02 12:00] VITALS: BP 100/62; TEMP 97; O2SAT 97
[2025-03-02] MEDS: LEVOTHYROXINE 50 MCG TABLET (0.05 MG) PO SCH (13:11)
[2025-03-02] MEDS: ROSUVASTATIN 10 MG TAB PO SCH (13:11)
[2025-03-02] MEDS: FOLIC ACID 1 MG TAB PO SCH (13:11)
[2025-03-02 17:45] VITALS: O2SAT 96
[2025-03-02 19:58] VITALS: BP 130/76; TEMP 98.6; O2SAT 97
[2025-03-02 21:00] VITALS: O2SAT 96
[2025-03-02] MEDS: TAMSULOSIN 0.4 MG CAP PO SCH (21:24)
[2025-03-02] MEDS: MIRTAZAPINE 15 MG TAB PO SCH (21:25)
[2025-03-03] VITALS: O2SAT 96
[2025-03-03 04:00] VITALS: BP 122/70; TEMP 98.2; O2SAT 96
[2025-03-03 06:16] LABS: BASO # 0.1 10^3/uL (0.0-0.2); BASO % 1.1 % (0.0-1.0); EOS # 0.3 10^3/uL (0.0-0.5); EOS % 4.4 % (0.0-3.0); LYMPH # 2.0 10^3/uL (1.5-5.0); LYMPH % 31.1 % (24.0-44.0); MONO # 0.5 10^3/uL (0.0-0.8); MONO % 7.0 % (2.0-8.0); NEUTROPHILS # 3.6 10^3/uL (1.5-8.5); NEUTROPHILS % 55.8 % (36.0-66.0); PLATELET COUNT, AUTOMATED 220 10^3/uL (150-450)
[2025-03-03 06:45] LABS: CALCIUM LEVEL 8.3 MG/DL (8.3-10.6); CARBON DIOXIDE LEVEL 25.0 MMOL/L (20-31); CHLORIDE LEVEL 110.0 MMOL/L (98-107); CREATININE FOR GFR 1.01 MG/DL (0.70-1.30); GLOMERULAR FILTRATION RATE 76.6 (>42); MAGNESIUM LEVEL 1.8 MG/DL (1.8-2.4); POTASSIUM SERUM 4.6 MMOL/L (3.5-5.1); SODIUM LEVEL 145.0 MMOL/L (136-145)
[2025-03-03] MEDS ORDERED: LORazepam 1 MG TAB PO PRN (08:40)
[2025-03-03 11:03] VITALS: O2SAT 98
== END 2025-03-03 12:35 | disposition home or self-care (01) | DRG 178 ==
LOC: M ED 18:16 → M ED INP 23:17 → M MSPAV 03-02 16:46
PROVIDERS: ADMIT Internal Medicine; ATTEND Internal Medicine
PROC: B246ZZZ Ultrasonography of Right and Left Heart (ICD-10-PCS; principal; 2025-03-02)
DX: U07.1 COVID-19 (principal); N17.9 Acute kidney failure, unspecified; E83.119 Hemochromatosis, unspecified; I10 Essential (primary) hypertension; E03.9 Hypothyroidism, unspecified; M19.90 Unspecified osteoarthritis, unspecified site; N40.1 Benign prostatic hyperplasia with lower urinary tract symptoms; M54.16 Radiculopathy, lumbar region; F32.A Depression, unspecified; Z96.653 Presence of artificial knee joint, bilateral; E86.0 Dehydration; R26.89 Other abnormalities of gait and mobility; H40.9 Unspecified glaucoma; R29.6 Repeated falls; E78.5 Hyperlipidemia, unspecified; Z79.890 Hormone replacement therapy; Z79.899 Other long term (current) drug therapy

== ENCOUNTER → 2025-03-01 | Outpatient (CLI) | payer OTHER ==
[~2025-03-01] MED LIST changes: +BRIN8DRO OU; +CEFD1CAP9 PO; +FOLI1TAB11 PO; +LEVOTAB10 PO; +LISI10TA22 PO; +MELO15TA28 PO; +MIRT-10 PO; +MUCI120T PO; +NETA2.5D2 OU; +ROSU10TA61 PO; +TAMS1CAP17 PO; +VITA500T40 PO
== END ==
LOC: M RAD 08:10
PROVIDERS: ATTEND Family Medicine
DX: K74.00 Hepatic fibrosis, unspecified (principal); N28.1 Cyst of kidney, acquired; K75.3 Granulomatous hepatitis, not elsewhere classified; K76.89 Other specified diseases of liver; D73.89 Other diseases of spleen

== ENCOUNTER 2025-03-09 12:29 | Emergency (ER) | payer OTHER ==
[~2025-03-09] VITALS: Ht 175.3 cm; Wt 76.6 kg
[~2025-03-09 12:29] MED LIST changes: +BRIN8DRO OU; +CEFD1CAP9 PO; +FOLI1TAB11 PO; +LEVOTAB10 PO; +LISI10TA22 PO; +MELO15TA28 PO; +MIRT-10 PO; +MUCI120T PO; +NETA2.5D2 OU; +ROSU10TA61 PO; +TAMS1CAP17 PO; +VITA500T40 PO
[2025-03-09 13:59] LABS: KETONE, URINE AUTO RFX NEGATIVE (NEGATIVE); MUCUS, URINE RFX SMALL (NEGATIVE); NITRITE, URINE AUTO RFX NEGATIVE (NEGATIVE); RBC, URINE AUTO RFX 1 /HPF (0-3); SQUAM EPITHELIAL CELL UR AURFX 2 /HPF (0-6)
[2025-03-09 14:13] LABS: LEUKOCYTE ESTERASE UR AUTO RFX TRACE (NEGATIVE); WBC, URINE AUTO RFX 15 /HPF (0-3)
[2025-03-09 15:09] LABS: BASO # 0.0 10^3/uL (0.0-0.2); BASO % 0.4 % (0.0-1.0); EOS # 0.3 10^3/uL (0.0-0.5); EOS % 2.2 % (0.0-3.0); LYMPH # 0.8 10^3/uL (1.5-5.0); LYMPH % 7.0 % (24.0-44.0); MONO # 0.7 10^3/uL (0.0-0.8); MONO % 6.2 % (2.0-8.0); NEUTROPHILS # 9.4 10^3/uL (1.5-8.5); NEUTROPHILS % 83.6 % (36.0-66.0); PLATELET COUNT, AUTOMATED 281 10^3/uL (150-450)
[2025-03-09] MEDS: LIDOCAINE 2% 5 ML JELLY UROJET TOP ONE (15:19)
[2025-03-09 15:38] LABS: CALCIUM LEVEL 9.2 MG/DL (8.3-10.6); CARBON DIOXIDE LEVEL 23.0 MMOL/L (20-31); CHLORIDE LEVEL 104.0 MMOL/L (98-107); CREATININE FOR GFR 1.23 MG/DL (0.70-1.30); GLOMERULAR FILTRATION RATE 60.5 (>42); POTASSIUM SERUM 4.3 MMOL/L (3.5-5.1); SODIUM LEVEL 139.0 MMOL/L (136-145)
[2025-03-09 15:46] LABS: KETONE, URINE AUTO RFX NEGATIVE (NEGATIVE); LEUKOCYTE ESTERASE UR AUTO RFX NEGATIVE (NEGATIVE); MUCUS, URINE RFX SMALL (NEGATIVE); NITRITE, URINE AUTO RFX NEGATIVE (NEGATIVE); RBC, URINE AUTO RFX 2 /HPF (0-3); SQUAM EPITHELIAL CELL UR AURFX 0 /HPF (0-6); WBC, URINE AUTO RFX 4 /HPF (0-3)
[2025-03-09] MEDS: ACETAMINOPHEN 325 MG TAB PO ONE (16:45)
[2025-03-09] MEDS ORDERED: TAMS-18 PO (19:22)
[2025-03-09 19:50] VITALS: BP 109/62; TEMP 98; O2SAT 98
== END 2025-03-09 19:52 | disposition home or self-care (01) ==
LOC: M ED 12:29
DX: R33.9 Retention of urine, unspecified (principal); N20.0 Calculus of kidney; K57.30 Diverticulosis of large intestine without perforation or abscess without bleeding; U07.1 COVID-19; I10 Essential (primary) hypertension; E78.5 Hyperlipidemia, unspecified; N40.1 Benign prostatic hyperplasia with lower urinary tract symptoms; E03.9 Hypothyroidism, unspecified; E83.119 Hemochromatosis, unspecified; K74.00 Hepatic fibrosis, unspecified; Z79.899 Other long term (current) drug therapy

== ENCOUNTER → 2025-03-14 | Outpatient (CLI) | payer OTHER ==
[~2025-03-14] MED LIST changes: +PROHANCE 279.3MG/ML 15ML VIAL As Ordered ONE; +TAMS-18 PO
== END ==
LOC: M RAD 16:37
PROVIDERS: ATTEND Family Medicine
DX: N42.89 Other specified disorders of prostate (principal); K40.20 Bilateral inguinal hernia, without obstruction or gangrene, not specified as recurrent
CPT/HCPCS: 72197; A9576

== ENCOUNTER → 2025-03-23 | Outpatient (CLI) | payer MEDICARE, OTHER ==
[~2025-03-23] MED LIST changes: -PROHANCE 279.3MG/ML 15ML VIAL As Ordered ONE
== END ==
LOC: M RAD 07:21
PROVIDERS: ATTEND Family Medicine
DX: M48.062 Spinal stenosis, lumbar region with neurogenic claudication (principal); M47.812 Spondylosis without myelopathy or radiculopathy, cervical region; M48.02 Spinal stenosis, cervical region; M46.02 Spinal enthesopathy, cervical region; M47.816 Spondylosis without myelopathy or radiculopathy, lumbar region; M47.817 Spondylosis without myelopathy or radiculopathy, lumbosacral region; M25.78 Osteophyte, vertebrae

== ENCOUNTER → 2025-03-25 | Outpatient (CLI) | payer OTHER ==
[2025-03-25 11:41] LABS: BASO # 0.1 10^3/uL (0.0-0.2); BASO % 1.0 % (0.0-1.0); EOS # 0.5 10^3/uL (0.0-0.5); EOS % 6.6 % (0.0-3.0); LYMPH # 1.9 10^3/uL (1.5-5.0); LYMPH % 26.6 % (24.0-44.0); MONO # 0.6 10^3/uL (0.0-0.8); MONO % 8.1 % (2.0-8.0); NEUTROPHILS # 4.0 10^3/uL (1.5-8.5); NEUTROPHILS % 57.4 % (36.0-66.0); PLATELET COUNT, AUTOMATED 228 10^3/uL (150-450)
[2025-03-25 11:55] LABS: INR 1.01
[2025-03-25 12:09] LABS: ALT/SGPT 15 U/L (7.0-40); AST/SGOT 21 U/L (<34); CALCIUM LEVEL 8.9 MG/DL (8.3-10.6); CARBON DIOXIDE LEVEL 26 MMOL/L (20-31); CHLORIDE LEVEL 108 MMOL/L (98-107); CREATININE FOR GFR 0.95 MG/DL (0.70-1.30); GLOMERULAR FILTRATION RATE 82.4 (>42); IRON (FE) 60 UG/DL (65-175); PERCENT SATURATION 21.7 % (19.7-50.0); POTASSIUM SERUM 4.4 MMOL/L (3.5-5.1); SODIUM LEVEL 144 MMOL/L (136-145)
[2025-03-25 12:11] LABS: VITAMIN B12 LEVEL 491 PG/ML (211-911)
== END ==
LOC: M LAB 10:59
PROVIDERS: ATTEND Family Medicine
DX: E83.110 Hereditary hemochromatosis (principal); K74.00 Hepatic fibrosis, unspecified; E53.8 Deficiency of other specified B group vitamins; Z12.5 Encounter for screening for malignant neoplasm of prostate

== ENCOUNTER → 2025-04-18 | Outpatient (CLI) | payer OTHER | LOC: M RAD 08:40 | PROVIDERS: ATTEND Family Medicine | DX: R27.0 Ataxia, unspecified (principal) ==

== ENCOUNTER → 2025-04-24 | Outpatient (CLI) | payer OTHER ==
[2025-04-24 19:51] LABS: PLATELET COUNT, AUTOMATED 246 10^3/uL (150-450)
[2025-04-24 20:16] LABS: CALCIUM LEVEL 8.8 MG/DL (8.3-10.6); CARBON DIOXIDE LEVEL 26.0 MMOL/L (20-31); CHLORIDE LEVEL 107.0 MMOL/L (98-107); CREATININE FOR GFR 0.88 MG/DL (0.70-1.30); GLOMERULAR FILTRATION RATE 88.6 (>42); POTASSIUM SERUM 4.5 MMOL/L (3.5-5.1); SODIUM LEVEL 143.0 MMOL/L (136-145)
== END ==
LOC: M WUC 14:07
PROVIDERS: ATTEND Urology
DX: Z01.818 Encounter for other preprocedural examination (principal); R97.20 Elevated prostate specific antigen [PSA]

== ENCOUNTER 2025-05-09 07:20 | Day surgery (SDC) | payer MEDICARE, OTHER ==
[~2025-05-09] VITALS: Ht 175.3 cm; Wt 73.5 kg
[~2025-05-09 07:20] MED LIST changes: +CIPR500T39 PO; +FINA5TAB2 PO; +LIDOCAINE 2% 100 MG/5 ML SDV (FOR ANES.) As Ordered ONE; +MIDAZOLAM INJ 2 MG/2 ML VIAL As Ordered ONE; +STOO100C30 PO; +XALA0.007
[2025-05-09] MEDS: LIDOCAINE 1% SDV 30 ML VIAL As Ordered ONE (09:00)
[2025-05-09] MEDS: cefTRIAXone SOD 1 GM in DEXTROSE 5% (D5W) ADV/MINI-BAG 50 ML IV ONE (09:14)
[2025-05-09 10:13] VITALS: BP 135/61; TEMP 97.6; O2SAT 98
== END 2025-05-09 10:31 | disposition home or self-care (01) ==
LOC: M SDC 07:20
PROVIDERS: ATTEND Urology
DX: R97.20 Elevated prostate specific antigen [PSA] (principal); Z79.899 Other long term (current) drug therapy; Z96.653 Presence of artificial knee joint, bilateral
CPT/HCPCS: 55700; G0416; J0696; J2250; J3010

== ENCOUNTER → 2025-05-23 | Outpatient (REF) | payer OTHER ==
[~2025-05-23] MED LIST changes: -LIDOCAINE 2% 100 MG/5 ML SDV (FOR ANES.) As Ordered ONE; -MIDAZOLAM INJ 2 MG/2 ML VIAL As Ordered ONE; -ROSU10TA61 PO; +ROSU10TA90 PO
[2025-05-23 17:15] LABS: APPEARANCE, URINE CLOUDY (CLEAR); BACTERIA, URINE AUTO 1+ (NEGATIVE); BILIRUBIN, URINE AUTO NEGATIVE (NEGATIVE); BLOOD, URINE BLOOD 2+ (NEGATIVE); GLUCOSE, URINE (UA) AUTO NEGATIVE (NEGATIVE); KETONE, URINE AUTO NEGATIVE (NEGATIVE); LEUKOCYTE ESTERASE, URINE AUTO 3+ (NEGATIVE); MUCUS, URINE SMALL (NEGATIVE); NITRITE, URINE AUTO NEGATIVE (NEGATIVE); PROTEIN, URINE AUTO 2+ mg/dL (NEGATIVE); RBC, URINE AUTO 36 /HPF (0-3); SPECIFIC GRAVITY URINE AUTO 1.015 (1.002-1.035); SQUAMOUS EPITHELIAL CELL UR AU 1 /HPF (0-6); UROBILINOGEN, URINE AUTO 0.2 mg/dL (0.0-2.0); WBC, URINE AUTO TNTC /HPF (0-3)
== END ==
LOC: M SMT 16:43
PROVIDERS: ATTEND Urology
DX: N39.0 Urinary tract infection, site not specified (principal)